=== PATIENT | male | born 1960 | race Caucasian/White ===

== ENCOUNTER 2025-02-04 16:13 | Inpatient (IN) | payer MEDICARE, SELFPAY ==
[2025-02-04] VITALS (47 sets, daily range): BP systolic 94–152; BP diastolic 54–77; PULSE 77–115; RESP 12–36; TEMP 36.4–37.1; O2SAT 85–100; BMI 27.2
--- NOTE | 2025-02-04 16:23 | DI.RAD.S_ITS ---
PROCEDURE: XR CHEST 1V INDICATIONS: Chest Pain TECHNIQUE: One view of the chest was acquired. COMPARISON: None. FINDINGS: Surgical changes and devices: None. Lungs and pleura: An incomplete inspiratory result is noted, causing a crowded appearance to the lung markings. No focal infiltrates are seen. No pneumothorax or significant pleural effusions are seen. Mediastinum: Mediastinal contours appear normal. Heart size is normal. Bones and chest wall: No suspicious bony lesions. Age-appropriate bony degenerative changes are seen. Overlying soft tissues appear unremarkable. IMPRESSION: Low lung volumes, without an acute abnormality seen by plain film. Dictated by: Logan Russo M.D. on 02/04/2025 at 15:40 Approved by: Logan Russo M.D. on 02/04/2025 at 15:40
--- NOTE | 2025-02-04 16:29 | EKG_ITS ---
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
[2025-02-04 16:46] LABS: INR 1.0 (0.9-1.3); Prothrombin Time 11.7 SECONDS (9.4-12.5)
[2025-02-04 16:49] LABS: PTT Partial Thromboplastin Tim 27 SECONDS (25.1-36.5)
[2025-02-04 16:50] LABS: Alanine Aminotransferase 29 IU/L (<50); Albumin 3.2 g/dL (3.5-5.0); Albumin Globulin Ratio 1.5 (1.0-2.8); Alkaline Phosphatase 76 U/L (38-126); Blood Urea Nitrogen 45 mg/dL (9-20); Calcium 8.2 mg/dL (8.4-10.2); Carbon Dioxide 26 mmol/L (22-32); Chloride 106 mmol/L (98-107); Creatine Kinase 34 U/L (55-170); Estimated Glomerular Filt Rate > 60 mL/min (>60); Globulin 2.2 g/dL (1.7-4.1); Glucose 149 mg/dL (70-99); HEMOLYSIS < 15 (0-50); Lipase 65 U/L (23-300); Magnesium 1.8 mg/dL (1.6-2.3); Potassium 5.0 mmol/L (3.4-5.1); Sodium 138 mmol/L (137-145); Total Protein 5.4 g/dL (6.3-8.2)
[2025-02-04 16:54] LABS: Add Manual Diff / Slide Review NO; Hematocrit 35.3 % (41-53); Hemoglobin 12.1 g/dL (13.5-17.5); Lymphocytes Absolute Auto 2200 /uL (1100-4500); Mean Corpuscular HGB Conc 34.5 % (30-36); Mean Corpuscular Hemoglobin 32.3 PG (26-34); Mean Corpuscular Volume 93.7 fL (80-100); Platelet Count 341 X10^3/uL (150-400)
[2025-02-04 17:01] LABS: NT-proBNP (BNP-Adult 18+) 29 pg/mL (<125); Troponin I < 0.012 ng/mL (0.01-0.034)
[2025-02-04] MEDS: SODIUM CHLORIDE 0.9% 1,000 ML 1000 ML IV (17:55)
--- NOTE | 2025-02-04 18:01 | PC.NURSE ---
Pt began feeling dizzy yesterday. He's been having diarrhea and vomiting off and on for a week and reported having red stuff in his stool. He states that he has been having ABD pain and feeling foggy. his right pupil is sluggish and he states that has been happening for a year due to vessel issues. he denies diabetes.
--- NOTE | 2025-02-04 18:08 | ED.SYNCOPE ---
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 Other than what is stated 14 point review of system is negative. Related Data Allergies Allergy/AdvReac Type Severity Reaction Status Date / Time No Known Drug Allergies Allergy Verified 02/04/25 16:26 Review of Systems Review of Systems ROS Unobtainable: All systems reviewed & are unremarkable except as noted in HPI and below Patient History Social History Smoking Status: Current every day smoker Smoking Status: Current every day smoker Exam Narrative Exam Narrative: GENERAL: [64] year old patient appears stated age. Well-developed patient, in mild distress. HEAD: Atraumatic. Normocephalic. EYES: Pupils equal round and reactive. Extraocular motions intact. No scleral icterus. No injection or drainage. ENT: Nose without bleeding, purulent drainage. Throat without erythema, tonsillar hypertrophy or exudate. Airway patent. NECK: Trachea midline. Non tender CARDIOVASCULAR: Regular rate and rhythm without murmurs, gallops, or rubs. RESPIRATORY: Clear to auscultation. Breath sounds equal bilaterally. No wheezes, rales, or rhonchi. GASTROINTESTINAL: Abdomen soft, non-tender, nondistended. EXTREMITIES: No edema or joint tenderness. Rectum: No hemorrhoids or fissure seen, guiac positive BACK: Nontender without deformity or crepitance. No flank tenderness. NEURO: AOx3. SKIN: No rash or erythema of visible areas Initial Vital Signs Initial Vital Signs: Vital Signs Pulse Rate 104 H 02/04/25 16:17 Pulse Oximetry 100 02/04/25 16:17 Course Orders Ordered: ED Orders 02/04/25 16:23 XR chest 1V Stat EKG-12 Lead Stat 02/04/25 16:25 Complete Blood Count AUTO DIFF Stat Comprehensive Metabolic Panel Stat Lipase Stat Magnesium Stat NT-proBNP (BNP-Adult 18+) Stat PTT Partial Thromboplastin Charan Stat Prothrombin Time INR Stat Troponin & CK Cardiac Panel Stat 02/04/25 17:56 Covid-19 + FLU A/B + RSV - PCR Stat 02/04/25 18:08 EKG-12 Lead Stat 02/04/25 18:09 CT angio Abd/Pel GI Bleed Stat 02/04/25 18:19 Type and Screen Stat Ondansetron HCl (Ondansetron 4 Mg/2 Ml Inj) 4 mg IV NOW PRN PRN Reason: Nausea And Vomiting Ondansetron HCl (Ondansetron 4 Mg Odt) 4 mg PO NOW PRN PRN Reason: Nausea And Vomiting Ondansetron HCl (Ondansetron 4 Mg/2 Ml Inj) 4 mg IV NOW PRN PRN Reason: Nausea And Vomiting Ondansetron HCl (Ondansetron 4 Mg Odt) 4 mg PO NOW PRN PRN Reason: Nausea And Vomiting Discontinued Medications Sodium Chloride (Normal Saline 0.9%) 1,000 mls @ 1,000 mls/hr IV BOLUS ONE Stop: 02/04/25 18:53 Last Infusion: 02/04/25 18:54 Dose: Infused Documented By: Admin: 02/04/25 17:55 Dose: 1,000 mls/hr Documented By: ALPHONSO Lactated Ringer's (Lactated Ringers) 1,000 mls @ 1,000 mls/hr IV BOLUS ONE Stop: 02/04/25 19:08 Last Admin: 02/04/25 19:00 Dose: 1,000 mls/hr Documented By: ALPHONSO Pantoprazole Sodium (Pantoprazole 40 Mg Vial) 80 mg IV NOW ONE Stop: 02/04/25 18:10 Last Admin: 02/04/25 18:48 Dose: 80 mg Documented By: ALPHONSO Vital Signs Vital signs: Vital Signs - 8 hr 02/04/25 16:17 02/04/25 16:23 02/04/25 16:23 Temperature Pulse Rate 104 H 103 H Respiratory Rate 21 Blood Pressure 125/72 Pulse Oximetry 100 100 Oxygen Delivery Method 02/04/25 16:24 02/04/25 16:30 02/04/25 16:30 Temperature 97.6 F Pulse Rate 105 H 103 H Respiratory Rate 18 21 Blood Pressure 125/72 118/66 Pulse Oximetry 100 100 Oxygen Delivery Method Room Air 02/04/25 17:00 02/04/25 17:00 02/04/25 17:30 Temperature Pulse Rate 103 H Respiratory Rate 12 Blood Pressure 96/54 L 102/57 L Pulse Oximetry 98 Oxygen Delivery Method 02/04/25 17:30 02/04/25 17:50 02/04/25 17:50 Temperature Pulse Rate 96 H 108 H Respiratory Rate 18 19 Blood Pressure 94/64 Pulse Oximetry 100 98 Oxygen Delivery Method 02/04/25 18:00 02/04/25 18:01 02/04/25 18:01 Temperature Pulse Rate 110 H 107 H Respiratory Rate 20 24 Blood Pressure 127/69 Pulse Oximetry 97 97 Oxygen Delivery Method 02/04/25 18:34 02/04/25 18:37 02/04/25 18:37 Temperature Pulse Rate 99 H 94 H Respiratory Rate 22 22 Blood Pressure 129/73 Pulse Oximetry 100 96 Oxygen Delivery Method 02/04/25 18:45 02/04/25 18:45 02/04/25 19:00 Temperature Pulse Rate 95 H Respiratory Rate 20 Blood Pressure 133/70 109/68 Pulse Oximetry 99 Oxygen Delivery Method 02/04/25 19:00 Temperature Pulse Rate 99 H Respiratory Rate 21 Blood Pressure Pulse Oximetry 99 Oxygen Delivery Method MDM - Syncope Lab Data 02/04/25 16:25 02/04/25 16:25 Labs: Lab Results 02/04/25 02/04/25 02/04/25 Range/Units 16:25 17:56 18:19 WBC 10.7 (4.5-11.0) X10^3/uL RBC 3.76 L (4.5-5.9) X10^6/uL Hgb 12.1 L (13.5-17.5) g/dL Hct 35.3 L (41-53) % MCV 93.7 (80-100) fL MCH 32.3 (26-34) PG MCHC 34.5 (30-36) % RDW 13.0 (11.6-14.8) % Plt Count 341 (150-400) X10^3/uL Neut % (Auto) 71.8 (50-75) % Lymph % (Auto) 20.8 L (25-40) % [place] % (Auto) 6.3 (3-14) % Eos % (Auto) 0.7 L (2-4) % Baso % (Auto) 0.4 (0-2) % Neut # (Auto) 7700 H (5868-8861) /uL Lymph # (Auto) 2200 (4047-5735) /uL [place] # (Auto) 700 (0-900) /uL Eos # (Auto) 100 (0-450) /uL Baso # (Auto) 0 (0-100) /uL PT 11.7 (9.4-12.5) SECONDS INR 1.0 (0.9-1.3) APTT 27 (25.1-36.5) SECONDS Sodium 138 (137-145) mmol/L Potassium 5.0 (3.4-5.1) mmol/L Chloride 106 (98-107) mmol/L Carbon Dioxide 26 (22-32) mmol/L BUN 45 H (9-20) mg/dL Creatinine 0.85 (0.66-1.25) mg/dL Estimated GFR > 60 (>60) mL/min BUN/Creatinine Ratio 52.9 H (6-22) Glucose 149 H (70-99) mg/dL Calcium 8.2 L (8.4-10.2) mg/dL Magnesium 1.8 (1.6-2.3) mg/dL Total Bilirubin 0.4 (0.2-1.3) mg/dL AST 31 (17-59) IU/L ALT 29 (<50) IU/L Alkaline Phosphatase 76 (38-126) U/L Total Creatine Kinase 34 L (55-170) U/L Troponin I < 0.012 (0.01-0.034) ng/mL NT-Pro-B Natriuret Pep 29 (<125) pg/mL Total Protein 5.4 L (6.3-8.2) g/dL Albumin 3.2 L (3.5-5.0) g/dL Globulin 2.2 (1.7-4.1) g/dL Albumin/Globulin Ratio 1.5 (1.0-2.8) Lipase 65 (23-300) U/L SARS-CoV-2 (PCR) Negative (Negative) Influenza A (RT-PCR) Flu a negative (NEGATIVE) Influenza B (RT-PCR) Flu b negative (NEGATIVE) RSV (PCR) Negative (Negative) Blood Type O Positive Antibody Screen Negative Point of Care Testing Stool Occult Blood Positive Imaging Data Chest x-ray: Radiologist's Impression: [address] [address] XRay Report Signed Patient: Jhon Matos MR#: [id number] : 1960 Acct:[id number] Age/Sex: 64 / M Date of Service: 02/04/25 Loc: ED Accession Number: [id number] Procedure: XR chest 1V Ordering Provider: Júnior Newman MD PROCEDURE: XR CHEST 1V INDICATIONS: Chest Pain TECHNIQUE: One view of the chest was acquired. COMPARISON: None. FINDINGS: Surgical changes and devices: None. Lungs and pleura: An incomplete inspiratory result is noted, causing a crowded appearance to the lung markings. No focal infiltrates are seen. No pneumothorax or significant pleural effusions are seen. Mediastinum: Mediastinal contours appear normal. Heart size is normal. Bones and chest wall: No suspicious bony lesions. Age-appropriate bony degenerative changes are seen. Overlying soft tissues appear unremarkable. IMPRESSION: Low lung volumes, without an acute abnormality seen by plain film. CT scan - abdomen/pelvis: Radiologist's Impression: [address] [address] [address] Scan Report Signed Patient: Jhon Matos MR#: [id number] : 1960 Acct:[id number] Age/Sex: 64 / M Date of Service: 02/04/25 Loc: ED Accession Number: [id number] Procedure: CT angio Abd/Pel GI Bleed Ordering Provider: Lavon Avila D.O. PROCEDURE: CT ANGIO ABD/PEL GI BLEED INDICATIONS: GI BLEED TECHNIQUE: After the administration of intravenous contrast, 2.5 mm thick sections acquired from the diaphragm to the symphysis. 10 mm maximum-intensity projection (MIP) reformats were then acquired. For radiation dose reduction, the following was used: automated exposure control. COMPARISON: None. FINDINGS: Image Quality: Diagnostic. Abdominal aorta: No aortic aneurysm or evidence of acute aortic syndrome. Mesenteric arteries: Patent without hemodynamically significant stenosis. Renal arteries: Patent without hemodynamically significant stenosis. OTHER: Lower Chest: No significant findings. Liver: No solid mass. A few small cysts. Gallbladder: No radiopaque gallstones or wall thickening. Biliary ducts: No biliary dilation. Pancreas: No ductal dilation. Spleen: Size is within normal limits. Adrenal Glands: No adrenal nodules. Kidneys and Ureters: No hydronephrosis. Small nonobstructing kidney stones bilaterally. No solid mass. No complex renal cystic lesion which requires follow up. Stomach and Bowel: A few colonic diverticuli. No diverticulitis. Normal appendix. No small bowel obstruction. There is subtle stranding near the gastric antrum, (). Peritoneum: No abnormal intraperitoneal fluid. No free air. Ventral Wall: No hernia. Abdominal Nodes: No retroperitoneal or mesenteric adenopathy by size criteria. Vessels: Aorta and inferior vena cava are normal in size. PELVIS: Pelvic Organs: Unremarkable. Bladder: Unremarkable. Pelvic Nodes: No enlarged lymph nodes. Miscellaneous: No inguinal hernias are seen. Bones: No aggressive osseous abnormality. Multilevel DDD. IMPRESSION: 1. No active extravasation. 2. Suspected minimal inflammatory change near the gastric antrum/proximal duodenum. 3. Small nonobstructing kidney stones. No hydronephrosis. ECG Data Interpretation: Sinus Tach HR 106 IL 140 QRS [address]-t wave change NO previous EKG to compare against MDM Narrative Medical decision making narrative: Vital signs, nurse triage note, medication list, previous ER visits, and all imaging studies reviewed. CTA abdomen and pelvis showed no active extravasation, suspected minimal inflammatory change near the gastric antrum and proximal duodenum. Small nonobstructing kidney stone. No hydronephrosis. He has 2 lines IV. Protonix IV given along with 2 L of of fluids given both NSR and LR. Typed and screened. Case discussed with Dr. Clyde Wallace who will be the consult on the case and to repeat lab work for the morning and and to be scoped in the morning and to admit to the hospitalist service. Differential diagnosis diverticular bleed, PUD, hemorrhoids. Case d/w hospitalist who has graciously accepted the patient for inpatient admission. NPO after midnight for scope in the morning and labs to be repeated with a.m. lab draw. Discharge Plan Departure Patient Disposition: Admitted As Inpatient Clinical Impression: GI (gastrointestinal bleed) Qualifiers: GI bleed type/associated pathology: gastroduodenitis Qualified Code(s): K29.91 - Gastroduodenitis, unspecified, with bleeding Admit Date/Time: 02/04/25 19:51 Admit Provider: Jase Kelsey
[2025-02-04 18:46] LABS: Influenza A - CEPHEID Flu A NEGATIVE (NEGATIVE); Influenza B - CEPHEID Flu B NEGATIVE (NEGATIVE)
[2025-02-04] MEDS: PANTOPRAZOLE 40 MG VIAL 80 MG IV (18:48)
[2025-02-04 18:50] LABS: COVID-19 CEPHEID 4-PLEX PCR Negative (Negative)
[2025-02-04] MEDS: LACTATED RINGERS 1,000 ML 1000 ML IV ×2 (19:00→19:49)
--- NOTE | 2025-02-04 20:27 | PC.NURSE ---
pt had approx 300cc of black tarry stool. also has bottom covered in black stool as well, approx 100cc. Provider observed in RR
[2025-02-04 20:57] LABS: Add Manual Diff / Slide Review NO; Hematocrit 23.6 % (41-53); Hemoglobin 8.2 g/dL (13.5-17.5); Lymphocytes Absolute Auto 2100 /uL (1100-4500); Mean Corpuscular HGB Conc 35.0 % (30-36); Mean Corpuscular Hemoglobin 32.8 PG (26-34); Mean Corpuscular Volume 93.9 fL (80-100); Platelet Count 265 X10^3/uL (150-400)
--- NOTE | 2025-02-04 21:14 | PC.NURSE ---
pt sat up on stretcher became cool, clammy and diaphoretic and unresponsive, was incontinent of large coffee ground loose stool. pt then became responsive but was disoriented and thrashing about on the bed
--- NOTE | 2025-02-04 21:30 | PC.NURSE ---
Pt was stable and stating he wanted a sandwhich. Provider was asked if he could have a sandwhich. Pt sat up to eat at approx 2100. Moments later the nurse heard coughing sounds coming from the room and responded to find the patient not responding but with a pulse and vitals WNL on the monitor. The patient was lowered flat and provider called to bedside. Mutiple RNs and MD responded. Provider ordered 2 units stat. Two units obtained and administered emergently. patient gave verbal consent at bedside. signed consent [id number].
[2025-02-04 22:02] LABS: Hematocrit 23.9 % (41-53); Hemoglobin 8.2 g/dL (13.5-17.5)
--- NOTE | 2025-02-04 22:36 | PC.NURSE ---
called and updated
[2025-02-05] VITALS (92 sets, daily range): BP systolic 72–160; BP diastolic 41–74; PULSE 93–124; RESP 0–38; TEMP 36.4–37.1; O2SAT 75–100
--- NOTE | 2025-02-05 | DI.RAD.S_ITS ---
PROCEDURE: XR CHEST 1V INDICATIONS: ET PLACEMENT TECHNIQUE: One view of the chest was acquired. COMPARISON: [facility], CR, XR CHEST 1V, 02/04/2025, 16:23. FINDINGS: Surgical changes and devices: Endotracheal tube tip projects 4.3 centimeters above the alvarez. Enteric tube courses below the diaphragm with distal tip not visualized. Lungs and pleura: Left lung base patchy opacities. No pleural effusions or pneumothorax. Mediastinum: Mediastinal contours appear normal. Heart size is normal. Bones and chest wall: No suspicious bony lesions. Overlying soft tissues appear unremarkable. IMPRESSION: Endotracheal tube projects 4.3 centimeters above the alvarez. Left base patchy opacities. Approved by: Katiuska Sandra M.D.,Ph.D. on 02/05/2025 at 20:16
--- NOTE | 2025-02-05 | PATH_ITS ---
[facility] Accession Number: [id number] No. of containers..01 Tissue . 01 Material submitted: . duodenum - DUODENAL BULB ULCER . 01 Diagnosis: DUODENAL BULB, BIOPSY: Duodenal mucosa with erosion, consistent with peptic duodenitis. Negative for features of sprue, dysplasia, or malignancy. MRV 02/12/2025 1512 Local . 01 Electronically signed: . José Manuel Sheffield MD, PhD, Pathologist NPI- [id number] . 01 Gross description: . DUODENAL BULB ULCER: Received in formalin are 2 fragment(s) of harper, soft tissue measuring 0.1 x 0.1 x 0.1 cm in aggregate submitted entirely in 1 cassette(s) /JH 02/10/2025 2318 Local . 01 Pathologist provided ICD-10: K29.80 . 01 CPT . 799184 Specimen Comment: A courtesy copy of this report has been sent to [facility] Performed at: [address] [address], [place], [place] [id number] MD Jesus Ortez MD Phone: [phone]
[2025-02-05] MEDS: SODIUM CHLORIDE 0.9% IV (00:39)
[2025-02-05] MEDS: PANTOPRAZOLE IV (00:39)
[2025-02-05] MEDS: SODIUM CHLORIDE 0.9% 1,000 ML 125 ML IV ×2 (00:41→08:42)
[2025-02-05 01:32] LABS: Add Manual Diff / Slide Review NO; Hematocrit 26.1 % (41-53); Hemoglobin 9.1 g/dL (13.5-17.5); Lymphocytes Absolute Auto 3300 /uL (1100-4500); Mean Corpuscular HGB Conc 34.8 % (30-36); Mean Corpuscular Hemoglobin 31.8 PG (26-34); Mean Corpuscular Volume 91.4 fL (80-100); Platelet Count 218 X10^3/uL (150-400)
[2025-02-05 01:56] LABS: MRSA (Nasal) PCR NOT DETECTED (Not Detect)
--- NOTE | 2025-02-05 04:28 | P.HP_ITS ---
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 He was also told 2 months ago in [place] [facility] that the left-sided carotid artery had numerous plaques and he needed to follow up in have surgery but he never did. Initial laboratory showed WBC 9.5, hemoglobin 12.1, hematocrit 35.3, platelets 265, INR 1, glucose 149, calcium 8.2, magnesium 1.8, troponin 0.0 12, potassium 5, creatinine 0.85, LFT normal, BNP 29, lipase 65, stool occult blood positive. Chest x-ray unremarkable. CT of the abdomen shows minimal inflammatory change near the gastric antrum/proximal duodenum. Small nonobstructive kidney stones without hydronephrosis. Surgery was consulted and recommended admission for GI bleed and colonoscopy/EGD in the morning. He was given Protonix 80 mg IV and several fluid boluses. [facility] Social History household members: spouse Smoking Status: Current every day smoker alcohol intake: current Meds Home Medications and Allergies Allergies Allergy/AdvReac Type Severity Reaction Status Date / Time No Known Drug Allergies Allergy Verified 02/04/25 16:26 Review of Systems Review of Systems Narrative: All systems reviewed & are unremarkable except as noted in HPI and below Exam Vital Signs (past 8 hours): - 02/04/25 20:30 02/04/25 20:31 02/04/25 20:31 Temperature Pulse Rate 107 H 100 H Respiratory Rate 28 H 22 Blood Pressure 143/66 H Pulse Oximetry 100 100 Oxygen Delivery Method 02/04/25 20:45 02/04/25 20:45 02/04/25 21:00 Temperature Pulse Rate 97 H 77 Respiratory Rate 16 25 H Blood Pressure 110/55 L Pulse Oximetry 98 100 Oxygen Delivery Method 02/04/25 21:04 02/04/25 21:04 02/04/25 21:06 Temperature Pulse Rate 114 H Respiratory Rate 29 H Blood Pressure 141/71 H 133/64 Pulse Oximetry 100 Oxygen Delivery Method 02/04/25 21:06 02/04/25 21:11 02/04/25 21:11 Temperature Pulse Rate 105 H 110 H Respiratory Rate 36 H 33 H Blood Pressure 111/56 L Pulse Oximetry 97 88 L Oxygen Delivery Method 02/04/25 21:15 02/04/25 21:15 02/04/25 21:19 Temperature 98.1 F Pulse Rate 115 H 103 H Respiratory Rate 24 20 Blood Pressure 113/62 121/64 Pulse Oximetry 100 Oxygen Delivery Method 02/04/25 21:20 02/04/25 21:20 02/04/25 21:36 Temperature 98.8 F Pulse Rate 103 H 104 H Respiratory Rate 26 H 14 Blood Pressure 121/64 117/63 Pulse Oximetry 100 Oxygen Delivery Method 02/04/25 21:37 02/04/25 23:30 02/04/25 23:32 Temperature 98.4 F Pulse Rate 105 H 102 H Respiratory Rate 14 20 Blood Pressure 123/65 131/61 Pulse Oximetry Oxygen Delivery Method Room Air 02/04/25 23:32 Temperature 98.4 F Pulse Rate 102 H Respiratory Rate 20 Blood Pressure 131/61 Pulse Oximetry Oxygen Delivery Method Oxygen Delivery Method Room Air Narrative Exam Narrative: Patient appears stated age. Well-developed patient, in mild distress. HEAD: Atraumatic. Normocephalic. EYES: Pupils equal round and reactive. Extraocular motions intact. No scleral icterus. No injection or drainage. ENT: Nose without bleeding, purulent drainage. Throat without erythema, tonsillar hypertrophy or exudate. Airway patent. NECK: Trachea midline. Non tender CARDIOVASCULAR: Regular rate and rhythm without murmurs, gallops, or rubs. RESPIRATORY: Clear to auscultation. Breath sounds equal bilaterally. No wheezes, rales, or rhonchi. GASTROINTESTINAL: Abdomen soft, non-tender, nondistended. EXTREMITIES: No edema or joint tenderness. Rectum: No hemorrhoids or fissure seen, guiac positive BACK: Nontender without deformity or crepitance. No flank tenderness. NEURO: AOx3. SKIN: No rash or erythema of visible areas Objective Labs 02/05/25 01:24 02/04/25 16:25 Labs: Laboratory Results - last 24 hr 02/04/25 02/04/25 02/04/25 16:25 17:56 18:19 WBC 10.7 RBC 3.76 L Hgb 12.1 L Hct 35.3 L MCV 93.7 MCH 32.3 MCHC 34.5 RDW 13.0 Plt Count 341 Neut % (Auto) 71.8 Lymph % (Auto) 20.8 L [place] % (Auto) 6.3 Eos % (Auto) 0.7 L Baso % (Auto) 0.4 Neut # (Auto) 7700 H Lymph # (Auto) 2200 [place] # (Auto) 700 Eos # (Auto) 100 Baso # (Auto) 0 PT 11.7 INR 1.0 APTT 27 Sodium 138 Potassium 5.0 Chloride 106 Carbon Dioxide 26 BUN 45 H Creatinine 0.85 Estimated GFR > 60 BUN/Creatinine Ratio 52.9 H Glucose 149 H POC Whole Bld Glucose Calcium 8.2 L Magnesium 1.8 Total Bilirubin 0.4 AST 31 ALT 29 Alkaline Phosphatase 76 Total Creatine Kinase 34 L Troponin I < 0.012 NT-Pro-B Natriuret Pep 29 Total Protein 5.4 L Albumin 3.2 L Globulin 2.2 Albumin/Globulin Ratio 1.5 Lipase 65 Nasal Screen MRSA (PCR) SARS-CoV-2 (PCR) Negative Influenza A (RT-PCR) Flu a negative Influenza B (RT-PCR) Flu b negative RSV (PCR) Negative Blood Type O Positive Antibody Screen Negative Crossmatch See Detail 02/04/25 02/04/25 02/04/25 20:50 21:05 23:30 WBC 9.5 RBC 2.51 L Hgb 8.2 L 8.2 L Hct 23.6 L 23.9 L MCV 93.9 MCH 32.8 MCHC 35.0 RDW 13.4 Plt Count 265 Neut % (Auto) 71.0 Lymph % (Auto) 21.8 L [place] % (Auto) 6.4 Eos % (Auto) 0.2 L Baso % (Auto) 0.6 Neut # (Auto) 6800 Lymph # (Auto) 2100 [place] # (Auto) 600 Eos # (Auto) 0 Baso # (Auto) 100 PT INR APTT Sodium Potassium Chloride Carbon Dioxide BUN Creatinine Estimated GFR BUN/Creatinine Ratio Glucose POC Whole Bld Glucose Calcium Magnesium Total Bilirubin AST ALT Alkaline Phosphatase Total Creatine Kinase Troponin I NT-Pro-B Natriuret Pep Total Protein Albumin Globulin Albumin/Globulin Ratio Lipase Nasal Screen MRSA (PCR) Not detected SARS-CoV-2 (PCR) Influenza A (RT-PCR) Influenza B (RT-PCR) RSV (PCR) Blood Type Antibody Screen Crossmatch 02/05/25 02/05/25 01:24 01:34 WBC 11.7 H RBC 2.85 L Hgb 9.1 L Hct 26.1 L MCV 91.4 MCH 31.8 MCHC 34.8 RDW 14.5 Plt Count 218 Neut % (Auto) 64.9 Lymph % (Auto) 28.3 [place] % (Auto) 5.9 Eos % (Auto) 0.3 L Baso % (Auto) 0.6 Neut # (Auto) 7600 H Lymph # (Auto) 3300 [place] # (Auto) 700 Eos # (Auto) 0 Baso # (Auto) 100 PT INR APTT Sodium Potassium Chloride Carbon Dioxide BUN Creatinine Estimated GFR BUN/Creatinine Ratio Glucose POC Whole Bld Glucose 139 H Calcium Magnesium Total Bilirubin AST ALT Alkaline Phosphatase Total Creatine Kinase Troponin I NT-Pro-B Natriuret Pep Total Protein Albumin Globulin Albumin/Globulin Ratio Lipase Nasal Screen MRSA (PCR) SARS-CoV-2 (PCR) Influenza A (RT-PCR) Influenza B (RT-PCR) RSV (PCR) Blood Type Antibody Screen Crossmatch Assessment & Plan Assessment & Plan narrative: Acute blood loss anemia requiring resuscitation with multiple blood transfusions. The patient required to be upgraded to ICU due to severe hypotension after 2 units of PRBC. His Hb drop from 12.1 to 8.2. Acute GI bleeding. -Monitor H and H every 4-6 hours; will transfuse depending on dropping hemoglobin and hematocrit and hemodynamic status. -start Protonix 40 mg IV twice a day. -Keep patient NPO -Monitor hemodynamics - Surgery consulted. Endoscopic evaluation of upper GI tract, as well as possibly colonoscopy would be necessary in this patient with high risk of gastrointestinal bleed. -Patient to get off any antiplatelet agent like aspirin, Plavix or NSAIDs. I performed this consultation using real-time telehealth tools, including a two- way live audio and video communication between my location at [place] and the patient's location. As the provider for this telehealth service, I attest that I introduced myself to the patient, provided my credentials, disclosed my location at [place], and determined that, based on a review of the patients chart and/or a discussion with members of the patient's treatment team, telemedicine via a real-time, two- way, interactive audio and video platform is an appropriate and effective means of providing this service. The patient and I mutually agree that this visit is appropriate for telemedicine as well. I personally reviewed the pertinent medical records, including, but not limited to vital signs, Is/Os, labs, imaging, microbiology, meds list and other providers? notes. I discussed the patient?s case with the RN and attending physician. Disclaimer Note: To increase efficiency, your provider may have prepared this document using voice recognition technology. In that case, if a word or phrase is confusing, or does not make sense, this is likely due to a recognition error within the program which was not discovered during the provider?s review. If you believe an error has occurred, please notify your provider?s office at your earliest convenience, so we can correct any mistakes. Time-Based Coding :: [TOTAL MINUTES] spent with patient and on the chart (including review of chart, obtaining history, exam, reviewing outside data, placing orders, documenting exam and treatment plan, and counseling patient) on [DATE]. Quality VTE Deep Vein Thrombosis/Pulmonary Embolism Present on Admission: No MIPS - Admit I confirm the patient?s Advance Care Plan is present, Code status is documented, Surrogate decision maker is in patient?s record [If Yes, STOP here]: Yes MIPS - Meds 'Current medications' to include all prescriptions, [id number] products, herbals, cannabis/cannabidiol products, and vitamin/mineral/dietary (nutritional) supplements. I have utilized all available resources to obtain, update, or review the patient?s current medications. [If Yes, STOP here]: Yes
[2025-02-05] MEDS: MORPHINE 4 MG/ML INJ 3 MG IV ×2 (07:01→14:43)
[2025-02-05 09:24] LABS: Alanine Aminotransferase 17 IU/L (<50); Albumin 2.1 g/dL (3.5-5.0); Albumin Globulin Ratio 1.2 (1.0-2.8); Alkaline Phosphatase 44 U/L (38-126); Blood Urea Nitrogen 40 mg/dL (9-20); Calcium 7.5 mg/dL (8.4-10.2); Carbon Dioxide 20 mmol/L (22-32); Chloride 115 mmol/L (98-107); Estimated Glomerular Filt Rate > 60 mL/min (>60); Globulin 1.8 g/dL (1.7-4.1); Glucose 97 mg/dL (70-99); HEMOLYSIS 22 (0-50); Magnesium 1.5 mg/dL (1.6-2.3); Potassium 4.7 mmol/L (3.4-5.1); Sodium 135 mmol/L (137-145); Total Protein 3.9 g/dL (6.3-8.2)
--- NOTE | 2025-02-05 09:30 | CM.DANOTE ---
Initial DCP Assessment Note Pt is a 64 yo male, resident of [place], with syncopal episode yesterday after having a numerous bloody bowel movements. Patient is scheduled for a scope today with general surgery. PCP: Unknown- Discuss with patient Payer: [facility] Reviewed chart, patient being seen by Dr Welch and Dr Randhawa, surgery, this morning. Patient NPO in preparation for scope. Patient is mostly independent, has residual visual deficit after CVA. Patient may be a good candidate for HH referral if provider(s) recommend and patient agreeable. No barriers identified at this time to patient's safe discharge home w/family to assist; close outpatient f/u recommended. Social work team will plan to follow clinical course closely in case any DC needs or concerns arise. 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 No History Provided By Patient Prior Living Mobile home Arrangements Household Members spouse Type of Drives own vehicle transporation used prior to admit Independent with ADL Yes 's Is patient alert and Yes oriented? Comment Prior CVA with visual deficit, needs assist with higher ADLs Comment Home Barriers to No Discharge Comment No barriers identified at this time. Scope today. Discharge Plan Home Transportation Family Arrangement Additional Comment Patient may benefit from HH referral, following closely for coordination.
[2025-02-05 09:39] LABS: Add Manual Diff / Slide Review NO; Hematocrit 21.5 % (41-53); Hemoglobin 7.5 g/dL (13.5-17.5); Lymphocytes Absolute Auto 2900 /uL (1100-4500); Mean Corpuscular HGB Conc 35.1 % (30-36); Mean Corpuscular Hemoglobin 31.7 PG (26-34); Mean Corpuscular Volume 90.4 fL (80-100); Platelet Count 210 X10^3/uL (150-400)
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
--- NOTE | 2025-02-05 10:27 | PC.NURSE ---
Addendum entered by Rachel Phillips R.N. 02/05/25 12:36: 1200 pt returned from OR A/O, VSS, OR was not able to administer PRBC, so first unit started at 1215 to infuse 2 units. Pt started on clear liquid diet, pt tolerating well. No further needs at this time, care ongoing Original Note: 1026 Pt to surgery for EGD, consent signed, 2 units PRBC to be started in surgery for H/H of 7.5/21.3 as ordered by surgeon. No further pt contact at this time
[2025-02-05] MEDS: LACTATED RINGERS 1,000 ML 42 ML IV (10:49)
--- NOTE | 2025-02-05 11:17 | PM.OP.EGD ---
Operative Date/Time/Diagnoses Date of procedure: 02/05/25 Time of procedure: 11:00 Pre-op diagnosis: GI bleeding with acute blood loss anemia black stools rule out upper GI bleed Post-op diagnosis: other (Irregular GE junction hiatal hernia with mild gastritis duodenal bulb ulcer nonbleeding) Procedure & Clinicians Study performed: EGD with MAC with biopsy of duodenal ulcer Same procedure(s) as scheduled: Yes Indications: Upper GI bleeding with acute blood loss anemia Surgeon: Abdulaziz Payne Anesthesia Type: MAC +/- (IV with MAC) Procedure Notes Procedure in detail: Patient was seen in consultation preoperatively in the ICU. Patient had lost approximately 5 g of hemoglobin was having black and red stools. Patient had an episode of syncope prior to arrival. Discussed with patient need for EGD with MAC procedure risks and complications were fully explained including risk for cardiopulmonary depression infection bleeding and bowel injury. Patient understood and consented. Patient had been NPO since admission. Was taken to endoscopy suite and given continuous pulse oximetry nasal cannula oxygen and EKG monitoring. The patient was given IV sedation as per anesthesia. Patient then had a time-out was performed patient procedure and surgeon all in the room were in agreement. Patient had an oral bite block was placed protect remaining dentition. Video EGD scope was lubricated with KY jelly and advanced into the oropharyngeal cavity. Vocal cords were visualized with good motion. Scope was advanced through the esophagus with normal anatomical landmarks. Irregular GE junction was noted with a small hiatal hernia. Old blood was noted in the gastric lumen this was irrigated off to avoid any hidden pathology. No gross bleeding was noted. Pylorus identified easily cannulated advanced limits of the scope. The scope was slowly withdrawn a large clot was noted overlying the 1st portion of the duodenum and duodenal bulb this was removed and an underlying ulcer was noted no exposed blood vessels were noted no active bleeding was noted. Biopsy was taken of the ulcer bed to rule out any pathology. No bleeding was noted with desufflation. The scope was further withdrawn through the pylorus with good motion no signs of channel ulcers or scarring. The scope was turned back the gastric lumen all materials were washed off the adames and all portals were aspirated voiding hidden pathology. The scope was retroflexed upon itself and the hiatal hernia was noted. All materials were aspirated out of the stomach scope was returned back to the GE junction no gross findings were noted other than irregular GE junction. Scope was slowly withdrawn back through the esophagus with normal anatomical landmarks. At the oropharyngeal cavity this was suctioned clear vocal cords noted again to have good motion. The scope was removed as was bite block all dentition was noted to be intact. The patient tolerated the procedure well without incident or complication was returned to recovery room in satisfactory condition. Postoperatively patient will be admitted back to ICU and monitored we will transfuse packed RBCs with a H&H is q.[address] on H2 blockers antacids and Carafate. Patient will be followed closely all questions were answered to patient's satisfaction. Findings: duodenal ulcer, gastritis and hiatal hernia Specimen(s): other Complications: none Impression: Duodenal bulb ulcer Post-procedure Recommendations: EGD in 1 year, Reflux diet and Will call with biopsy results Disposition: ICU
[2025-02-05] MEDS: MAGNESIUM SULFATE 2 GM/50 ML PIGGYBACK IV (12:50)
[2025-02-05] MEDS: MAG HYDROX/ALUM/SIMETH 30 ML UDC PO (13:03)
[2025-02-05] MEDS: SUCRALFATE 1 GM TABLET PO (13:03)
[2025-02-05] MEDS: PANTOPRAZOLE 40 MG VIAL IV (13:04)
--- NOTE | 2025-02-05 13:48 | CM.DANOTE ---
Initial DCP Assessment Note Pt is a 64 yo male, currently living in his RV with SO, admitted for work up of GI Bleed, upper scope scheduled today with general surgeon. PCP: None Payer: CAROLE Reviewed chart, met w/patient who reports he has been traveling w/SO in his RV, staying at [facility] sites. Patient and SO were headed to [facility]. 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 Patient admits to of polysubstance abuse, denies current illicit drug use or heavy ETOH. 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 Upon discharge, patient plans to take an uber vs taxi back to his RV. SO does not drive the RV and the only other form of transport they have is patient's Carlos, motorcycle. No barriers identified at this time to patient's safe discharge back to RV. Social work team will plan to follow clinical course closely in case any DC needs or concerns arise. RIRI Madera Discharge Planning/Care Management CM Discharge Assessment Start: 02/04/25 23:30 Freq: Status: Active Protocol: Document 02/05/25 13:43 TAM (Rec: 02/05/25 13:47 TAM [id number]) Discharge Planning Assessment Assigned Discharge RIRI Espinoza Pesticide Chemist DPIFTIKHAR/Assigned JANINE Sorinao Designee Name Contact Information [phone] Advance Directives? No History Provided By Patient Prior Living RV Arrangements Household Members significant other Type of Drives own vehicle transporation used prior to admit Comment Carlos Independent with ADL Yes 's Is patient alert and Yes oriented? Comment Independent Comment Back to RV via taxi vs Uber Barriers to No Discharge Discharge Plan Home Transportation Taxi vs Uber Arrangement Referrals Initiated None needed Additional Comment Patient denies needs from this SW team
--- NOTE | 2025-02-05 14:53 | P.HP_ITS ---
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 Initial laboratory showed WBC 9.5, hemoglobin 12.1, hematocrit 35.3, platelets 265, INR 1, glucose 149, calcium 8.2, magnesium 1.8, troponin 0.0 12, potassium 5, creatinine 0.85, LFT normal, BNP 29, lipase 65, stool occult blood positive. Chest x-ray unremarkable. CT of the abdomen shows minimal inflammatory change near the gastric antrum/proximal duodenum. Small nonobstructive kidney stones without hydronephrosis. Surgery was consulted and recommended admission for GI bleed and colonoscopy/EGD in the morning. He was given Protonix 80 mg IV and several fluid boluses. 02/05: The patient underwent upper endoscopy today showing a nonbleeding duodenal ulcer without visible vessel, gastritis and hiatal hernia. Old blood was noted in the gastric lumen. No gross bleeding was noted. He reports his last drink was 2 days ago, single beer, states he does not drink regularly, and denies a history of alcohol withdrawal, prior endoscopy or ulcers, aspirin or NSAID use, or known underlying liver disease or cirrhosis. [facility] Social History household members: significant other Smoking Status: Current every day smoker alcohol intake: current Meds Home Medications and Allergies Home Medications ?Medication ?Instructions ?Recorded ?Confirmed ?Type No Known Home Medications 02/05/2508/01 History Allergies Allergy/AdvReac Type Severity Reaction Status Date / Time No Known Drug Allergies Allergy Verified 02/04/25 16:26 Review of Systems Review of Systems ROS: Yes All systems reviewed with the patient and are negative except as otherwise documented Exam Vital Signs (past 8 hours): - 02/05/25 07:00 02/05/25 07:00 02/05/25 07:00 Temperature Pulse Rate 108 H Respiratory Rate 25 H Blood Pressure 101/65 Pulse Oximetry 99 Oxygen Delivery Method Room Air 02/05/25 07:30 02/05/25 08:00 02/05/25 08:00 Temperature 97.6 F Pulse Rate 101 H 96 H Respiratory Rate 14 13 Blood Pressure Pulse Oximetry 99 100 Oxygen Delivery Method 02/05/25 08:00 02/05/25 08:30 02/05/25 09:00 Temperature Pulse Rate 98 H 100 H Respiratory Rate 12 11 L Blood Pressure 112/68 Pulse Oximetry 100 99 Oxygen Delivery Method 02/05/25 09:30 02/05/25 10:00 02/05/25 11:00 Temperature Pulse Rate 100 H 96 H Respiratory Rate 18 18 Blood Pressure Pulse Oximetry 100 99 Oxygen Delivery Method Room Air 02/05/25 11:15 02/05/25 11:20 02/05/25 11:41 Temperature Pulse Rate 103 H 103 H 93 H Respiratory Rate 20 22 16 Blood Pressure 119/61 115/56 L 112/65 Pulse Oximetry 96 95 Oxygen Delivery Method Room Air Room Air Room Air 02/05/25 11:57 02/05/25 11:58 02/05/25 11:58 Temperature Pulse Rate 93 H 94 H Respiratory Rate Blood Pressure 121/73 Pulse Oximetry 81 L 75 L Oxygen Delivery Method 02/05/25 12:00 02/05/25 12:00 02/05/25 12:14 Temperature 98.8 F Pulse Rate 99 H 111 H Respiratory Rate 20 Blood Pressure 123/69 123/69 Pulse Oximetry Oxygen Delivery Method 02/05/25 12:30 02/05/25 12:30 02/05/25 12:45 Temperature Pulse Rate 102 H Respiratory Rate 22 Blood Pressure 148/72 H 132/74 Pulse Oximetry 84 L Oxygen Delivery Method 02/05/25 12:45 02/05/25 13:00 02/05/25 13:00 Temperature Pulse Rate 105 H 103 H Respiratory Rate 20 18 Blood Pressure 137/73 Pulse Oximetry 83 L 98 Oxygen Delivery Method Oxygen Delivery Method Room Air Narrative Exam Narrative: GENERAL: This is a chronically ill-appearing male patient, appears uncomfortable for denying discrete pain, otherwise in no apparent distress. HEAD: Atraumatic. Normocephalic. No temporal or scalp tenderness. EYES: Pupils equal round and reactive. Extraocular motions intact. No scleral icterus. No injection or drainage. ENT: Mucous membranes pink and moist. NECK: Trachea midline. No JVD, bruits or lymphadenopathy. Supple, nontender, no meningeal signs. CARDIOVASCULAR: Regular rate and rhythm without murmurs, gallops, or rubs. RESPIRATORY: Clear to auscultation. GASTROINTESTINAL: Abdomen soft, epigastric tenderness, no guarding or rebound, nondistended. EXTREMITIES: No clubbing, cyanosis, or edema. BACK: Nontender without deformity or crepitance. No flank tenderness. NEUROLOGIC: Alert, oriented, speech fluent, full upper and lower motor strength, no focal deficits evident. DERMATOLOGIC: No rashes or skin lesions. Objective ECG Impression: EKG 02/04/2025: Sinus tachycardia at 106 beats per minute. No ischemic changes Imaging Chest x-ray 02/04/2025: : Radiologist's impression: Low lung volumes, without an acute abnormality seen by plain film. Abdomen/pelvis CTA 02/04/2025: : Radiologist's impression: 1. No active extravasation. 2. Suspected minimal inflammatory change near the gastric antrum/proximal duodenum. 3. Small nonobstructing kidney stones. No hydronephrosis. Labs 02/05/25 09:20 02/05/25 08:40 Labs: Laboratory Results - last 24 hr 02/04/25 02/04/25 02/04/25 16:25 17:56 18:19 WBC 10.7 RBC 3.76 L Hgb 12.1 L Hct 35.3 L MCV 93.7 MCH 32.3 MCHC 34.5 RDW 13.0 Plt Count 341 Neut % (Auto) 71.8 Lymph % (Auto) 20.8 L [place] % (Auto) 6.3 Eos % (Auto) 0.7 L Baso % (Auto) 0.4 Neut # (Auto) 7700 H Lymph # (Auto) 2200 [place] # (Auto) 700 Eos # (Auto) 100 Baso # (Auto) 0 PT 11.7 INR 1.0 APTT 27 Sodium 138 Potassium 5.0 Chloride 106 Carbon Dioxide 26 BUN 45 H Creatinine 0.85 Estimated GFR > 60 BUN/Creatinine Ratio 52.9 H Glucose 149 H POC Whole Bld Glucose Calcium 8.2 L Magnesium 1.8 Total Bilirubin 0.4 AST 31 ALT 29 Alkaline Phosphatase 76 Total Creatine Kinase 34 L Troponin I < 0.012 NT-Pro-B Natriuret Pep 29 Total Protein 5.4 L Albumin 3.2 L Globulin 2.2 Albumin/Globulin Ratio 1.5 Lipase 65 Nasal Screen MRSA (PCR) SARS-CoV-2 (PCR) Negative Influenza A (RT-PCR) Flu a negative Influenza B (RT-PCR) Flu b negative RSV (PCR) Negative Blood Type O Positive Antibody Screen Negative Crossmatch See Detail 02/04/25 02/04/25 02/04/25 20:50 21:05 23:30 WBC 9.5 RBC 2.51 L Hgb 8.2 L 8.2 L Hct 23.6 L 23.9 L MCV 93.9 MCH 32.8 MCHC 35.0 RDW 13.4 Plt Count 265 Neut % (Auto) 71.0 Lymph % (Auto) 21.8 L [place] % (Auto) 6.4 Eos % (Auto) 0.2 L Baso % (Auto) 0.6 Neut # (Auto) 6800 Lymph # (Auto) 2100 [place] # (Auto) 600 Eos # (Auto) 0 Baso # (Auto) 100 PT INR APTT Sodium Potassium Chloride Carbon Dioxide BUN Creatinine Estimated GFR BUN/Creatinine Ratio Glucose POC Whole Bld Glucose Calcium Magnesium Total Bilirubin AST ALT Alkaline Phosphatase Total Creatine Kinase Troponin I NT-Pro-B Natriuret Pep Total Protein Albumin Globulin Albumin/Globulin Ratio Lipase Nasal Screen MRSA (PCR) Not detected SARS-CoV-2 (PCR) Influenza A (RT-PCR) Influenza B (RT-PCR) RSV (PCR) Blood Type Antibody Screen Crossmatch 02/05/25 02/05/25 02/05/25 01:24 01:34 08:40 WBC 11.7 H RBC 2.85 L Hgb 9.1 L Hct 26.1 L MCV 91.4 MCH 31.8 MCHC 34.8 RDW 14.5 Plt Count 218 Neut % (Auto) 64.9 Lymph % (Auto) 28.3 [place] % (Auto) 5.9 Eos % (Auto) 0.3 L Baso % (Auto) 0.6 Neut # (Auto) 7600 H Lymph # (Auto) 3300 [place] # (Auto) 700 Eos # (Auto) 0 Baso # (Auto) 100 PT INR APTT Sodium 135 L Potassium 4.7 Chloride 115 H Carbon Dioxide 20 L BUN 40 H Creatinine 0.68 Estimated GFR > 60 BUN/Creatinine Ratio 58.8 H Glucose 97 POC Whole Bld Glucose 139 H Calcium 7.5 L Magnesium 1.5 L Total Bilirubin 0.6 AST 21 ALT 17 Alkaline Phosphatase 44 Total Creatine Kinase Troponin I NT-Pro-B Natriuret Pep Total Protein 3.9 L Albumin 2.1 L Globulin 1.8 Albumin/Globulin Ratio 1.2 Lipase Nasal Screen MRSA (PCR) SARS-CoV-2 (PCR) Influenza A (RT-PCR) Influenza B (RT-PCR) RSV (PCR) Blood Type Antibody Screen Crossmatch 02/05/25 09:20 WBC 11.2 H RBC 2.38 L Hgb 7.5 L Hct 21.5 L MCV 90.4 MCH 31.7 MCHC 35.1 RDW 14.4 Plt Count 210 Neut % (Auto) 66.3 Lymph % (Auto) 26.4 [place] % (Auto) 6.2 Eos % (Auto) 0.5 L Baso % (Auto) 0.6 Neut # (Auto) 7400 H Lymph # (Auto) 2900 [place] # (Auto) 700 Eos # (Auto) 100 Baso # (Auto) 100 PT INR APTT Sodium Potassium Chloride Carbon Dioxide BUN Creatinine Estimated GFR BUN/Creatinine Ratio Glucose POC Whole Bld Glucose Calcium Magnesium Total Bilirubin AST ALT Alkaline Phosphatase Total Creatine Kinase Troponin I NT-Pro-B Natriuret Pep Total Protein Albumin Globulin Albumin/Globulin Ratio Lipase Nasal Screen MRSA (PCR) SARS-CoV-2 (PCR) Influenza A (RT-PCR) Influenza B (RT-PCR) RSV (PCR) Blood Type Antibody Screen Crossmatch Assessment & Plan Assessment & Plan narrative: Acute blood loss anemia requiring resuscitation with multiple blood transfusions. The patient required to be upgraded to ICU due to severe hypotension after 2 units of PRBC, with additional 2 units PRBC ordered. Acute GI bleeding due to duodenal ulcer by EGD 02/05/2025. -Monitor serial hematocrits -continue Protonix 40 mg IV twice a day plus sucralfate 4 times daily. - Surgery consultation greatly appreciated. History of polysubstance and alcohol abuse. -reportedly currently inactive. Monitor for evidence of withdrawal. DVT prophylaxis: SCDs, avoid anticoagulants Code status: Full code. Quality VTE Deep Vein Thrombosis/Pulmonary Embolism Present on Admission: No MIPS - Admit I confirm the patient?s Advance Care Plan is present, Code status is documented, Surrogate decision maker is in patient?s record [If Yes, STOP here]: Yes [facility] - Meds 'Current medications' to include all prescriptions, [id number] products, herbals, cannabis/cannabidiol products, and vitamin/mineral/dietary (nutritional) supplements. I have utilized all available resources to obtain, update, or review the patient?s current medications. [If Yes, STOP here]: Yes [employer] Document charge(s): No Charge Codes Initial inpatient/observation care: [id number]
[2025-02-05 17:37] LABS: Platelet Count 169 X10^3/uL (150-400)
[2025-02-05 17:39] LABS: Hematocrit 20.1 % (41-53); Hemoglobin 6.9 g/dL (13.5-17.5)
[2025-02-05 17:45] LABS: INR 1.2 (0.9-1.3); Prothrombin Time 13.6 SECONDS (9.4-12.5)
[2025-02-05 17:46] LABS: Fibrinogen 139 mg/dL (238-498)
[2025-02-05 17:48] LABS: PTT Partial Thromboplastin Tim 27 SECONDS (25.1-36.5)
--- NOTE | 2025-02-05 17:57 | RT ---
Called to Rapid, at bedside pt vomitting jade blood, sweaty and cant breath. Pt suctioned for copiuos jade blood, placed on 15 lpm oximask. MD at bedside prepairing for intubation. Bag mask on and functional with 100% fio2/15lpm. Suction on and functional
--- NOTE | 2025-02-05 18:11 | PC.NURSE ---
1615 This nurse went into pt room after Dr Welch noted that pt was trying to climb out of bed, DAVID Lovelace and myself approached pt and explain he couldn't get out of bed. Assisted pt back to bed, pt laid down and started seizing at which time Dr Welch was called to the room as pt began vomiting blood as well as stooling blood. At that time a rapid response was called, it was determined that the pt would need to be intubated as he was audibly wheezing, and screaming I can't breathe. Anesthesia was called in 1640 Prop 100mg 1640 Succ 100mg 1645 Epi 10 (with an additional 20 given while attempting to stabilize, place central line and art line) 1644 Intubated and positive color change, Propofol gtt started At this time the Surgeon arrived, ordered 2 additional units of PRBC, rainbow labs and placed a femoral central line. Norepi started (see emar for vital trends) It was then determined that the pt would be transported back to the OR for line placement and exploratory surgery. Notified by lab of Critical H/H 6.920.1 Pt transported by OR team, this nurse, Shasha RN, Jhon RT, no further pt contact at this time.
--- NOTE | 2025-02-05 18:44 | P.TELICUCN_ITS ---
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 Coags within normal but Fibrinogen, pending CXR post incubation. EGD showed bleeding DU, s/p Epi injections, electro cautary and endo clips x4. in OR Pt received 4 PRBC, 3 FFP & 1 platelets. Pt off levo now. Acute UGI bleed Acute blood loss anemia Acute metbolic encephalopathy/ Alcohol withdrawal Aspiration Acute hypoxic resp failure 2/2 above On propfol, Versed drip for tonight for deep sedation to avoid further irritation and bleed, in am may add Precedex and slowly wean off Versed, may consider phenobarb as needed On PRVC 18/480/5/100%, wean off Fio2 for sat goal of 92 Vent bundle care, follow up ABG IV PPI Check Fibrinogen and if still low pls give Cryor or fibrinogen Repeat Coags and fibrinogen ( if available could check TEG) Trend CBC & coags Zosyn empirically for aspiration PNA SCD for vte ppx NPO Durham cath I/O Plan discussed with Staff CCT 45 min [facility] Social History household members: significant other Smoking Status: Current every day smoker alcohol intake: current Current Medications Current Medications Medications: Home Medications No Known Home Medications 02/05/25 [History Confirmed 02/05/25] Visit Medications (administered) Generic Name Dose Route Start Last Admin Trade Name Freq PRN Reason Stop Dose Admin Sodium Chloride 1,000 mls @ 125 mls/hr 02/04/25 20:00 02/05/25 08:42 Normal Saline 0.9% IV 125 mls/hr CONT MICHAEL Administration Morphine Sulfate 3 mg 02/04/25 19:49 02/05/25 14:43 Morphine 4 Mg/Ml Inj IV 3 mg Q2HR PRN Administration Pain, Severe (7-10) Pantoprazole Sodium 40 mg 02/05/25 13:02 02/05/25 13:04 Pantoprazole 40 Mg Vial IV 40 mg BID MICHAEL Administration Exam Vital Signs (past 8 hours): - 02/05/25 11:00 02/05/25 11:15 02/05/25 11:20 Temperature Pulse Rate 103 H 103 H Respiratory Rate 20 22 Blood Pressure 119/61 115/56 L Pulse Oximetry 96 Oxygen Delivery Method Room Air Room Air Room Air 02/05/25 11:41 02/05/25 11:57 02/05/25 11:58 Temperature Pulse Rate 93 H 93 H 94 H Respiratory Rate 16 Blood Pressure 112/65 Pulse Oximetry 95 81 L 75 L Oxygen Delivery Method Room Air 02/05/25 11:58 02/05/25 12:00 02/05/25 12:00 Temperature Pulse Rate 99 H Respiratory Rate Blood Pressure 121/73 123/69 Pulse Oximetry Oxygen Delivery Method 02/05/25 12:14 02/05/25 12:30 02/05/25 12:30 Temperature 98.8 F Pulse Rate 111 H 102 H Respiratory Rate 20 22 Blood Pressure 123/69 148/72 H Pulse Oximetry 84 L Oxygen Delivery Method 02/05/25 12:45 02/05/25 12:45 02/05/25 13:00 Temperature Pulse Rate 105 H Respiratory Rate 20 Blood Pressure 132/74 137/73 Pulse Oximetry 83 L Oxygen Delivery Method 02/05/25 13:00 02/05/25 13:15 02/05/25 13:15 Temperature Pulse Rate 103 H 95 H Respiratory Rate 18 19 Blood Pressure 136/68 Pulse Oximetry 98 100 Oxygen Delivery Method 02/05/25 13:30 02/05/25 13:30 02/05/25 13:45 Temperature Pulse Rate 100 H Respiratory Rate 14 Blood Pressure 111/70 118/62 Pulse Oximetry 100 Oxygen Delivery Method 02/05/25 13:45 02/05/25 14:00 02/05/25 14:00 Temperature Pulse Rate 107 H 108 H Respiratory Rate 32 H 24 Blood Pressure 110/57 L Pulse Oximetry 96 94 Oxygen Delivery Method 02/05/25 14:15 02/05/25 14:15 02/05/25 14:30 Temperature Pulse Rate 101 H Respiratory Rate 9 L Blood Pressure 115/67 94/55 L Pulse Oximetry 100 Oxygen Delivery Method 02/05/25 14:30 02/05/25 14:46 02/05/25 14:46 Temperature Pulse Rate 115 H 106 H Respiratory Rate 17 22 Blood Pressure 116/62 Pulse Oximetry 100 96 Oxygen Delivery Method 02/05/25 15:00 02/05/25 15:00 02/05/25 15:19 Temperature 98.4 F Pulse Rate 101 H 103 H Respiratory Rate 27 H 20 Blood Pressure 90/51 L 119/61 Pulse Oximetry 96 Oxygen Delivery Method 02/05/25 15:25 02/05/25 16:50 02/05/25 17:21 Temperature 98.5 F Pulse Rate 100 H 114 H 116 H Respiratory Rate 18 34 H 38 H Blood Pressure 119/61 Pulse Oximetry Oxygen Delivery Method 02/05/25 17:22 02/05/25 17:26 Temperature 98.1 F 98.3 F Pulse Rate 111 H 105 H Respiratory Rate 18 18 Blood Pressure 95/45 L 74/42 L Pulse Oximetry Oxygen Delivery Method Oxygen Delivery Method Room Air Objective Labs 02/05/25 17:23 02/05/25 08:40 Labs: Laboratory Results - last 24 hr 02/04/25 02/04/25 02/04/25 17:56 18:19 20:50 WBC 9.5 RBC 2.51 L Hgb 8.2 L Hct 23.6 L MCV 93.9 MCH 32.8 MCHC 35.0 RDW 13.4 Plt Count 265 Neut % (Auto) 71.0 Lymph % (Auto) 21.8 L Bland % (Auto) 6.4 Eos % (Auto) 0.2 L Baso % (Auto) 0.6 Neut # (Auto) 6800 Lymph # (Auto) 2100 Bland # (Auto) 600 Eos # (Auto) 0 Baso # (Auto) 100 PT INR APTT Fibrinogen Sodium Potassium Chloride Carbon Dioxide BUN Creatinine Estimated GFR BUN/Creatinine Ratio Glucose POC Whole Bld Glucose Calcium Magnesium Total Bilirubin AST ALT Alkaline Phosphatase Total Protein Albumin Globulin Albumin/Globulin Ratio Nasal Screen MRSA (PCR) SARS-CoV-2 (PCR) Negative Influenza A (RT-PCR) Flu a negative Influenza B (RT-PCR) Flu b negative RSV (PCR) Negative Blood Type O Positive Antibody Screen Negative Crossmatch See Detail 02/04/25 02/04/25 02/05/25 21:05 23:30 01:24 WBC 11.7 H RBC 2.85 L Hgb 8.2 L 9.1 L Hct 23.9 L 26.1 L MCV 91.4 MCH 31.8 MCHC 34.8 RDW 14.5 Plt Count 218 Neut % (Auto) 64.9 Lymph % (Auto) 28.3 Bland % (Auto) 5.9 Eos % (Auto) 0.3 L Baso % (Auto) 0.6 Neut # (Auto) 7600 H Lymph # (Auto) 3300 Bland # (Auto) 700 Eos # (Auto) 0 Baso # (Auto) 100 PT INR APTT Fibrinogen Sodium Potassium Chloride Carbon Dioxide BUN Creatinine Estimated GFR BUN/Creatinine Ratio Glucose POC Whole Bld Glucose Calcium Magnesium Total Bilirubin AST ALT Alkaline Phosphatase Total Protein Albumin Globulin Albumin/Globulin Ratio Nasal Screen MRSA (PCR) Not detected SARS-CoV-2 (PCR) Influenza A (RT-PCR) Influenza B (RT-PCR) RSV (PCR) Blood Type Antibody Screen Crossmatch 02/05/25 02/05/25 02/05/25 01:34 08:40 09:20 WBC 11.2 H RBC 2.38 L Hgb 7.5 L Hct 21.5 L MCV 90.4 MCH 31.7 MCHC 35.1 RDW 14.4 Plt Count 210 Neut % (Auto) 66.3 Lymph % (Auto) 26.4 Bland % (Auto) 6.2 Eos % (Auto) 0.5 L Baso % (Auto) 0.6 Neut # (Auto) 7400 H Lymph # (Auto) 2900 Bland # (Auto) 700 Eos # (Auto) 100 Baso # (Auto) 100 PT INR APTT Fibrinogen Sodium 135 L Potassium 4.7 Chloride 115 H Carbon Dioxide 20 L BUN 40 H Creatinine 0.68 Estimated GFR > 60 BUN/Creatinine Ratio 58.8 H Glucose 97 POC Whole Bld Glucose 139 H Calcium 7.5 L Magnesium 1.5 L Total Bilirubin 0.6 AST 21 ALT 17 Alkaline Phosphatase 44 Total Protein 3.9 L Albumin 2.1 L Globulin 1.8 Albumin/Globulin Ratio 1.2 Nasal Screen MRSA (PCR) SARS-CoV-2 (PCR) Influenza A (RT-PCR) Influenza B (RT-PCR) RSV (PCR) Blood Type Antibody Screen Crossmatch 02/05/25 17:23 WBC RBC Hgb 6.9 L* Hct 20.1 L* MCV MCH MCHC RDW Plt Count 169 Neut % (Auto) Lymph % (Auto) Bland % (Auto) Eos % (Auto) Baso % (Auto) Neut # (Auto) Lymph # (Auto) Bland # (Auto) Eos # (Auto) Baso # (Auto) PT 13.6 H INR 1.2 APTT 27 Fibrinogen 139 L Sodium Potassium Chloride Carbon Dioxide BUN Creatinine Estimated GFR BUN/Creatinine Ratio Glucose POC Whole Bld Glucose Calcium Magnesium Total Bilirubin AST ALT Alkaline Phosphatase Total Protein Albumin Globulin Albumin/Globulin Ratio Nasal Screen MRSA (PCR) SARS-CoV-2 (PCR) Influenza A (RT-PCR) Influenza B (RT-PCR) RSV (PCR) Blood Type Antibody Screen Crossmatch Assessment & Plan Time-Based Coding :: [TOTAL MINUTES] spent with patient and on the chart (including review of chart, obtaining history, exam, reviewing outside data, placing orders, documenting exam and treatment plan, and counseling patient) on [DATE].
--- NOTE | 2025-02-05 18:57 | PM.PROC.1 ---
Procedures Date/Time Date of procedure: 02/05/25 Time of procedure: 16:40 Intubation Time out performed: Yes Sedative: other (PROPOFOL 100 MG) Paralytic: succinylcholine (100 MG) Laryngoscope: other (GLIDESCOPE 3) ET tube size: 7 ET tube uncuffed: No Tube secured depth (cm): 22 Tube secured location: teeth (22) Tube placement confirmation: visualized tube passing through cords, equal breath sounds bilaterally, no breath sounds over epigastrium and confirmation by capnometry Patient tolerated procedure: well Intubation complications: none Additional comments: wrong provider. See note under Leila Varner ARRIVED 1635, PT TACHYPNEA, ASHEN COLOR DIFFICULT TO OBTAIN VITALS PATIENT WAS VERY AGITATED. DR ALMEIDA AT BEDSIDE REQUESTING INTUBATION. 1640 Prop 100mg 1640 Succ 100mg 1644 Intubated WITHOUT COMPLICATIONS and positive color change, Propofol gtt started 1645 EPHEDRINE 10MG (with an additional 20MG given while attempting to stabilize, place central line and art line) At this time the Surgeon arrived, ordered 2 additional units of PRBC, rainbow labs and placed a femoral central line. Norepi started (see emar for vital trends) It was then determined that the pt would be transported back to the OR for line placement and exploratory surgery. Notified by lab of Critical H/H 6.9/20.1 Pt transported by OR team, this nurse, Shasha RN, Jhon RT, no further pt contact at this time.
--- NOTE | 2025-02-05 19:28 | PM.OP.EGD ---
Operative Date/Time/Diagnoses Date of procedure: 02/05/25 Time of procedure: 06:00 Pre-op diagnosis: recurrent doudenal ulcer bleed with acute blood loss and hypotension Post-op diagnosis: same
--- NOTE | 2025-02-05 19:51 | P.OP.EGD_ITS ---
Operative Date/Time/Diagnoses Date of procedure: 02/05/25 Time of procedure: 18:00 Pre-op diagnosis: Recurrent duodenal ulcer bleeding with massive acute hemorrhage and hypotension Post-op diagnosis: same (Active arterial bleeding from duodenal ulcer bed) Procedure & Clinicians Study performed: EGD with general inhalation endotracheal anesthetic with control of duodenal ulcer bleeding with injection of epinephrine hot biopsy forceps and Endoclips x4 Same procedure(s) as scheduled: Yes Indications: Acute recurrent duodenal ulcer bleeding Surgeon: Abdulaziz Payne Anesthesia Type: General Procedure Notes Procedure in detail: Patient was initially seen in consultation this a.m. for a upper GI bleed with acute blood loss anemia patient underwent EGD with biopsy of ulcer no active bleeding at the time. Patient was placed on H2 blockers antacids and Carafate. Patient had an episode of recurrent bleeding with appearance of a seizure activity patient was immediately intubated fluid resuscitated and blood products were given. Patient was taken back to surgery suite for repeat EGD for control of recurrent duodenal ulcer bleeding with possible exploratory laparotomy with gastric resection. Unable to reach any family members patient was intubated and was done under emergency circumstances. Patient stat lab showed a WBC of 11.2 hemoglobin of 6.9 hematocrit is 20.1 platelets are 169,000. Patient was taken immediately to the OR was placed in the supine position underwent massive fluid resuscitation patient also had right femoral triple-lumen central venous catheter multiple attempts were made at art lines patient had NG tube placed prior to going to the OR. In the OR patient had oral bite block was placed underwent further resuscitations video EGD scope was then lubricated and advanced through the oropharyngeal cavity vocal cords could not be seen as do endotracheal tube scope was advanced through the esophagus with the NG tube noted in place old blood was noted within the gastric lumen the pylorus was identified and easily cannulated a large amount of blood and clot was noted in the duodenum this was suctioned and irrigated out to the best of our ability in the duodenal bulb patient was again noted to have the ulcer with an overlying inflammatory area and clot. This was washed off and then was injected in the base in 4 quadrants with a GI injection needle with epinephrine patient then und erwent electrocautery of the base and surrounding tissue. Patient still continued to have small arterial oozing patient was underwent endo clips x4 surrounding the ulcer base with cessation of the bleeding patient was further irrigated and observed for approximately 20 minutes to make sure that is going to be no further bleeding with desufflation no further bleeding was noted. Patient underwent further resuscitation warming patient had had SCDs were placed [place] catheter had been placed in the ICU patient continued to be monitored patient's central line was switched from the right femoral area to the right eye internal jugular area by anesthesia. Patient was given 3 units of packed RBCs in OR 3 of FFP and 1 bag of platelets. Chest x-ray was performed which showed positioning in the superior vena cava with no signs of pneumothorax the tip of the endotracheal tube could not be seen as the neck was not in the film. Patient tolerated the procedure well without further incident patient was quite hypothermic he was given Juan Hugger and warming fluids throughout the procedure patient returned to ICU we will continue on the ventilator with aggressive transfusions warming. If patient has any further bleeding would warrant doing an exploratory laparotomy with antral resection and gastrojejunostomy. Multiple attempts have been made to contact the patient's family with no success we will follow patient closely and carefully. Patient's prognosis is guarded. Findings: duodenal ulcer Specimen(s): none sent Complications: other Impression: Recurrent duodenal ulcer bleeding with acute hemorrhagic blood loss hypotension seizure Post-procedure Disposition: ICU
[2025-02-05] MEDS: EPINEPHrine 1 MG/ML IV (20:34)
[2025-02-05 20:49] LABS: Blood Gas Collection Site Arterial Line; HCO3 ABG 20 mmol/L (23-27); Oxygen Saturation ABG 100 % (95-100); PCO2 ABG 41.2 mmHg (35-45); PO2 ABG 535 mmHg (80-100); TCO2 ABG 19 mmol/L (23-27)
[2025-02-05] MEDS: MIDAZOLAM 50 MG in DEXTROSE 5 % IN WATER 40 ML IV (21:14)
--- NOTE | 2025-02-05 21:38 | P.PCN_ITS ---
Procedures Date/Time Date of procedure: 02/05/25 Time of procedure: 18:11 Arterial Line Time out performed: Yes Size (Gauge): 20 Technique used: other (guidewire with ultrasound guidance) Post-Procedure: line sutured into place and dry sterile dressing placed Patient tolerated procedure: Well Complications: none Site: left and right Additional comments: placed by NIKUNJ academic interventionist
--- NOTE | 2025-02-05 21:39 | P.PCN_ITS ---
Procedures Date/Time Date of procedure: 02/05/25 Time of procedure: 19:25 Arterial Line Size (Gauge): 20 Central Line Placement Time out performed: Yes Patient placed on monitor/pulse ox: Yes MD prep: mask, gown and gloves Central line prep: Chlorhexidine scrub Local anesthesia used: other anesthetic (under GETA) Ultrasound used for placement: Yes Central line lumen inserted: triple Post procedure: sutured in place, good blood return, all ports aspirated, flushed, capped and sterile dressing applied Post procedure x-ray: tip of catheter in good position and no pneumothorax seen Patient tolerated procedure: well and no complications Complications: none Additional comments: R TL CVC * Set up equipment and flushes all lumens with 0.9% Saline * Ultrasound identification of internal jugular vein and depth (confirm vein is compressible and locate artery) * Insert needle for guidewire under ultrasound guidance, aspirating until withdraw blood * Remove syringe and thread guidewire through needle * Inserted guidewire to a depth of 16cm (checking for arrythmia on ECG monitoring) * Removed needle after wire placement and confirm that the guidewire is in a vein (using ultrasound) * Used scalpel to josafat a tract (through skin only) next to the guidewire * Thread dilator over wire into the vein (6-8cm usually enough) * Thread the catheter over the wire * Insertion depth: 16 cm * Removed wire and lock catheter to prevent flow of blood * Confirmed that the guidewire is complete, and the tip has not been damaged * Aspirated and flush all lumens * Sutured at the skin and at the anchor point x 4 * Applied sterile transparent semipermeable dressing
--- NOTE | 2025-02-05 21:39 | PM.PROC.1 ---
Procedures Date/Time Date of procedure: 02/05/25 Time of procedure: 19:25 Arterial Line Size (Gauge): 20 Central Line Placement Time out performed: Yes Patient placed on monitor/pulse ox: Yes MD prep: mask, gown and gloves Central line prep: Chlorhexidine scrub Local anesthesia used: other anesthetic (under GETA) Ultrasound used for placement: Yes Central line lumen inserted: triple Post procedure: sutured in place, good blood return, all ports aspirated, flushed, capped and sterile dressing applied Post procedure x-ray: tip of catheter in good position and no pneumothorax seen Patient tolerated procedure: well and no complications Complications: none Additional comments: R TL CVC Set up equipment and flushes all lumens with 0.9% Saline Ultrasound identification of internal jugular vein and depth (confirm vein is compressible and locate artery) Insert needle for guidewire under ultrasound guidance, aspirating until withdraw blood Remove syringe and thread guidewire through needle Inserted guidewire to a depth of 16cm (checking for arrythmia on ECG monitoring) Removed needle after wire placement and confirm that the guidewire is in a vein (using ultrasound) Used scalpel to josafat a tract (through skin only) next to the guidewire Thread dilator over wire into the vein (6-8cm usually enough) Thread the catheter over the wire Insertion depth: 16 cm Removed wire and lock catheter to prevent flow of blood Confirmed that the guidewire is complete, and the tip has not been damaged Aspirated and flush all lumens Sutured at the skin and at the anchor point x 4 Applied sterile transparent semipermeable dressing
--- NOTE | 2025-02-05 21:42 | SUR.PHASEI ---
Patient transported from OR to ICU
--- NOTE | 2025-02-05 21:44 | SUR.PHASEI ---
Patient transported to ICU post-procedure on surveillance system monitor and ventilator with PACU nurse, OR nurse and Anesthesia provider. Bedside report given to ICU staff.
--- NOTE | 2025-02-05 21:47 | PM.PROC.1 ---
Procedures Date/Time Date of procedure: 02/05/25 Time of procedure: 21:48 Arterial Line Size (Gauge): 20 Intubation Time out performed: Yes Sedative: other (propofol) Mg given: 100 Paralytic: succinylcholine Mg given: 100 Laryngoscope: other (glidescope 3) ET tube size: 7 ET tube uncuffed: No Tube secured depth (cm): 22 Tube secured location: teeth Tube placement confirmation: visualized tube passing through cords, equal breath sounds bilaterally, no breath sounds over epigastrium and confirmation by capnometry Patient tolerated procedure: well Intubation complications: none Additional comments: ARRIVED 1635, PT TACHYPNEA, ASHEN COLOR DIFFICULT TO OBTAIN VITALS PATIENT WAS VERY AGITATED. DR ALMEIDA AT BEDSIDE REQUESTING INTUBATION. 1640 Prop 100mg 1640 Succ 100mg 1644 Intubated WITHOUT COMPLICATIONS and positive color change, Propofol gtt started 1645 EPHEDRINE 10MG (with an additional 20MG given while attempting to stabilize, place central line and art line) At this time the Surgeon arrived, ordered 2 additional units of PRBC, rainbow labs and placed a femoral central line. Norepi started (see emar for vital trends) It was then determined that the pt would be transported back to the OR for line placement and exploratory surgery. Notified by lab of Critical H/H 6.9/20.1 Pt transported by OR team, this nurse, Shasha RN, Jhon RT, no further pt contact at this time.
[2025-02-05 22:27] LABS: HCO3 ABG 16 mmol/L (23-27); Oxygen Saturation ABG 98 % (95-100); PCO2 ABG 30.0 mmHg (35-45); PO2 ABG 101 mmHg (80-100); TCO2 ABG 16 mmol/L (23-27)
[2025-02-05 22:56] LABS: Hematocrit 18.2 % (41-53); Hemoglobin 6.3 g/dL (13.5-17.5)
[2025-02-06] VITALS (74 sets, daily range): BP systolic 74–160; BP diastolic 48–87; PULSE 88–114; RESP 0–19; TEMP 36.4–37.7; O2SAT 87–109
[2025-02-06] MEDS: PIPERACILLIN/TAZO 3.375 GM in SODIUM CHLORIDE 0.9% 100 ML IV ×3 (01:44→18:31)
[2025-02-06] MEDS: MORPHINE 4 MG/ML INJ 3 MG IV (01:46)
[2025-02-06] MEDS: PANTOPRAZOLE 40 MG VIAL IV ×3 (01:46→20:48)
[2025-02-06 04:52] LABS: HCO3 ABG 16 mmol/L (23-27); Oxygen Saturation ABG 98 % (95-100); PCO2 ABG 25.7 mmHg (35-45); PO2 ABG 102 mmHg (80-100); TCO2 ABG 15 mmol/L (23-27)
--- NOTE | 2025-02-06 06:30 | DI.RAD.S_ITS ---
PROCEDURE: XR CHEST 1V INDICATIONS: NG placement TECHNIQUE: One view of the chest was acquired. COMPARISON: [facility], CR, XR CHEST 1V, 02/05/2025, 19:20. FINDINGS: Surgical changes and devices: NG tube tip is in stomach lumen below the left hemidiaphragm. Right internal jugular central venous catheter tip is in SVC. Lungs and pleura: Pulmonary vascular congestion. Airspace opacities are seen scattered in bilateral perihilar and infrahilar region. No significant pleural effusion. No pneumothorax. Mediastinum: Mediastinal contours appear normal. Heart size is enlarged. Bones and chest wall: No suspicious bony lesions. Overlying soft tissues appear unremarkable. IMPRESSION: Cardiomegaly and pulmonary vascular congestion. Small patchy infiltrate/atelectasis in bilateral lower lung mosley. No pleural effusion or pneumothorax. Dictated by: Msasimo Valencia M.D. on 02/06/2025 at 9:01 Approved by: Massimo Valencia M.D. on 02/06/2025 at 9:02
--- NOTE | 2025-02-06 08:16 | PC.NURSE ---
Late Entry MAR titration of Levophed 0350 inc to 0.12 (BP 94/54 MAP 60) 0410 inc to 0.14 (BP 88/55 MAP 52) 0440 inc to 0.16 (BP 96/48 MAP 63) 0520 dec to 0.14 (BP 140/65 MAP 96) 0640 inc to 0.15 (BP95/46 MAP 67)
[2025-02-06 08:20] LABS: Alanine Aminotransferase 20 IU/L (<50); Albumin 2.3 g/dL (3.5-5.0); Albumin Globulin Ratio 1.0 (1.0-2.8); Alkaline Phosphatase 47 U/L (38-126); Blood Urea Nitrogen 36 mg/dL (9-20); Calcium 7.8 mg/dL (8.4-10.2); Carbon Dioxide 19 mmol/L (22-32); Chloride 112 mmol/L (98-107); Estimated Glomerular Filt Rate > 60 mL/min (>60); Globulin 2.2 g/dL (1.7-4.1); Glucose 107 mg/dL (70-99); HEMOLYSIS < 15 (0-50); Magnesium 1.9 mg/dL (1.6-2.3); Potassium 4.7 mmol/L (3.4-5.1); Sodium 136 mmol/L (137-145); Total Protein 4.5 g/dL (6.3-8.2)
--- NOTE | 2025-02-06 08:31 | PM.PN.IH.1 ---
Subjective Subjective Date Patient Seen: 02/05/25 Time Patient Seen: 08:30 Interval history: Patient is seen in the ICU resting on the ventilator sedated ventilator management and medical management as per hospitalist. Patient has had minimal output out of the NG patient is making good urine chest x-ray was viewed showing emphysematous COPD changes with lines inappropriate places endotracheal tube appropriate place. Patient was hypertensive during the evening cut back on fluids. Patient has received total of 11 units of packed RBCs 3 units of FFP 1 of cryoprecipitate and 1 bag of platelets. Morning CBC is pending. Ventilator settings are FiO2 of 24% tidal volume of 500 peep of 5 pH is 7.40 pCO2 is 25.7 PO2 is 102 base excess is -8.1 SaO2 is 98% sodium is 136 potassium 4.7 chloride 112 bicarb is 19 BUN of 36 creatinine is 1.03 random blood sugar is 107 total bilirubin is 0.5 AST is 33 alkaline phosphatase 20 coags are pending. Vitals temperature is 98.7? pulse is 104 respirations 17 on ventilator BP is 112/50 with a pulse ox of 99% Patient is sedated paralyzed on the ventilator heart regular rate and rhythm with slight tachycardia. Lungs diminished but good breath sounds bilaterally no rales rhonchi or wheezes noted. Abdomen is slightly distended but soft hypoactive bowel sounds with NG clamped no masses or peritoneal signs previous IV access sites are clear no signs of bleeding. Impression: Postop day 1. EGD with duodenal ulcer nonbleeding with rebleeding later in the afternoon with massive transfusion protocols and control of bleeding endoscopically History of tobacco abuse Atherosclerotic vascular disease with peripheral vascular disease history of a previous CVA patient failed to follow-up for treatment Hypertension uncontrolled Previous history of polypharmacy drug abuse Plan: We will continue with current medical management no need for emergent return to surgery at this time we will adjust medications and blood products as according to laboratory. Patient is stable at this time no need for emergent return to surgery but if needed would do a exploratory laparotomy with antrectomy and gastrojejunostomy to control the bleeding source. But with patient's massive transfusion coexisting medical problems it would be at high risk for complications and problems due to 2 previous scopes hypothermia and massive transfusions we will follow patient closely and carefully patient's prognosis is guarded. Exam Vital Signs (past 8 hours): - 02/06/25 01:00 02/06/25 01:00 02/06/25 01:30 Temperature Pulse Rate 112 H 113 H Respiratory Rate 0 L 0 L Blood Pressure Pulse Oximetry 99 92 Oxygen Delivery Method Mechanical Ventilation 02/06/25 01:32 02/06/25 01:57 02/06/25 01:57 Temperature 99.9 F H Pulse Rate 112 H 114 H Respiratory Rate 16 0 L Blood Pressure 124/68 99/55 L Pulse Oximetry 91 Oxygen Delivery Method 02/06/25 02:00 02/06/25 02:23 02/06/25 02:23 Temperature Pulse Rate 114 H 114 H Respiratory Rate 0 L 13 Blood Pressure 120/69 Pulse Oximetry 89 L 99 Oxygen Delivery Method 02/06/25 02:30 02/06/25 03:00 02/06/25 03:30 Temperature Pulse Rate 111 H 110 H 109 H Respiratory Rate 0 L 9 L 0 L Blood Pressure Pulse Oximetry 99 100 99 Oxygen Delivery Method 02/06/25 04:00 02/06/25 04:11 02/06/25 04:29 Temperature 98.7 F 98.7 F 98.7 F Pulse Rate 105 H 105 H 104 H Respiratory Rate 18 17 17 Blood Pressure 111/53 L 120/69 107/54 L Pulse Oximetry 99 Oxygen Delivery Method 02/06/25 05:00 02/06/25 07:39 Temperature 98.7 F Pulse Rate 104 H Respiratory Rate 17 Blood Pressure 112/50 L Pulse Oximetry Oxygen Delivery Method Mechanical Ventilation Oxygen Delivery Method Mechanical Ventilation Objective Labs 02/06/25 08:38 02/06/25 07:52 Labs: Laboratory Results - last 24 hr 02/04/25 02/05/25 02/05/25 18:19 08:40 09:20 WBC 11.2 H RBC 2.38 L Hgb 7.5 L Hct 21.5 L MCV 90.4 MCH 31.7 MCHC 35.1 RDW 14.4 Plt Count 210 Neut % (Auto) 66.3 Lymph % (Auto) 26.4 [place] % (Auto) 6.2 Eos % (Auto) 0.5 L Baso % (Auto) 0.6 Neut # (Auto) 7400 H Lymph # (Auto) 2900 [place] # (Auto) 700 Eos # (Auto) 100 Baso # (Auto) 100 PT INR APTT Fibrinogen ABG Sample Site ABG pH ABG pCO2 ABG pO2 ABG HCO3 ABG Total CO2 ABG O2 Saturation ABG Base Excess Vladimir Test Sodium 135 L Potassium 4.7 Chloride 115 H Carbon Dioxide 20 L BUN 40 H Creatinine 0.68 Estimated GFR > 60 BUN/Creatinine Ratio 58.8 H Glucose 97 POC Whole Bld Glucose Calcium 7.5 L Magnesium 1.5 L Total Bilirubin 0.6 AST 21 ALT 17 Alkaline Phosphatase 44 Total Protein 3.9 L Albumin 2.1 L Globulin 1.8 Albumin/Globulin Ratio 1.2 Blood Type O Positive Antibody Screen Negative Crossmatch See Detail 02/05/25 02/05/25 02/05/25 17:23 20:44 22:22 WBC RBC Hgb 6.9 L* Hct 20.1 L* MCV MCH MCHC RDW Plt Count 169 Neut % (Auto) Lymph % (Auto) [place] % (Auto) Eos % (Auto) Baso % (Auto) Neut # (Auto) Lymph # (Auto) [place] # (Auto) Eos # (Auto) Baso # (Auto) PT 13.6 H INR 1.2 APTT 27 Fibrinogen 139 L ABG Sample Site Arterial line ABG pH 7.30 L 7.35 ABG pCO2 41.2 30.0 L ABG pO2 535 H* 101 H ABG HCO3 20 L 16 L ABG Total CO2 19 L 16 L ABG O2 Saturation 100 98 ABG Base Excess -5.8 L -8.5 L Vladimir Test N/a Sodium Potassium Chloride Carbon Dioxide BUN Creatinine Estimated GFR BUN/Creatinine Ratio Glucose POC Whole Bld Glucose Calcium Magnesium Total Bilirubin AST ALT Alkaline Phosphatase Total Protein Albumin Globulin Albumin/Globulin Ratio Blood Type Antibody Screen Crossmatch 02/05/25 02/06/25 02/06/25 22:35 04:46 06:22 WBC RBC Hgb 6.3 L* Hct 18.2 L* MCV MCH MCHC RDW Plt Count Neut % (Auto) Lymph % (Auto) [place] % (Auto) Eos % (Auto) Baso % (Auto) Neut # (Auto) Lymph # (Auto) [place] # (Auto) Eos # (Auto) Baso # (Auto) PT INR APTT Fibrinogen ABG Sample Site ABG pH 7.40 ABG pCO2 25.7 L ABG pO2 102 H ABG HCO3 16 L ABG Total CO2 15 L ABG O2 Saturation 98 ABG Base Excess -8.1 L Vladimir Test Sodium Potassium Chloride Carbon Dioxide BUN Creatinine Estimated GFR BUN/Creatinine Ratio Glucose POC Whole Bld Glucose 104 H Calcium Magnesium Total Bilirubin AST ALT Alkaline Phosphatase Total Protein Albumin Globulin Albumin/Globulin Ratio Blood Type Antibody Screen Crossmatch 02/06/25 07:52 WBC RBC Hgb Hct MCV MCH MCHC RDW Plt Count Neut % (Auto) Lymph % (Auto) [place] % (Auto) Eos % (Auto) Baso % (Auto) Neut # (Auto) Lymph # (Auto) [place] # (Auto) Eos # (Auto) Baso # (Auto) PT INR APTT Fibrinogen ABG Sample Site ABG pH ABG pCO2 ABG pO2 ABG HCO3 ABG Total CO2 ABG O2 Saturation ABG Base Excess Vladimir Test Sodium 136 L Potassium 4.7 Chloride 112 H Carbon Dioxide 19 L BUN 36 H Creatinine 1.03 Estimated GFR > 60 BUN/Creatinine Ratio 35.0 H Glucose 107 H POC Whole Bld Glucose Calcium 7.8 L Magnesium 1.9 Total Bilirubin 0.5 AST 33 ALT 20 Alkaline Phosphatase 47 Total Protein 4.5 L Albumin 2.3 L Globulin 2.2 Albumin/Globulin Ratio 1.0 Blood Type Antibody Screen Crossmatch [facility] Social History household members: significant other Smoking Status: Current every day smoker alcohol intake: current Assessment & Plan Time-Based Coding :: [TOTAL MINUTES] spent with patient and on the chart (including review of chart, obtaining history, exam, reviewing outside data, placing orders, documenting exam and treatment plan, and counseling patient) on [DATE]. 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
[2025-02-06 08:32] LABS: Troponin I 0.042 ng/mL (0.01-0.034)
[2025-02-06] MEDS: fentaNYL 1,000 MCG in DEXTROSE 5% IN WATER 230 ML 15.082 MCG IV (08:45)
[2025-02-06 08:52] LABS: Add Manual Diff / Slide Review NO; Hematocrit 27.3 % (41-53); Hemoglobin 9.1 g/dL (13.5-17.5); Lymphocytes Absolute Auto 1500 /uL (1100-4500); Mean Corpuscular HGB Conc 33.4 % (30-36); Mean Corpuscular Hemoglobin 30.4 PG (26-34); Mean Corpuscular Volume 91.0 fL (80-100); Platelet Count 145 X10^3/uL (150-400)
--- NOTE | 2025-02-06 09:31 | EKG_ITS ---
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
[2025-02-06] MEDS: MIDAZOLAM 50 MG in DEXTROSE 5 % IN WATER 40 ML 5.171 MG IV (09:47)
--- NOTE | 2025-02-06 11:00 | PM.PN.EICU ---
Subjective Subjective IF CAMERA ACTIVATED, patient seen via real-time interactive audiovisual communication: Camera activated Consent obtained for tele-demonstrator sewing techniques care: Yes Patient Location: ICU Provider location (State): Other participants/roles: RN & MD Interval history: Following on 64-year-old white male presented with H/O of Hematochazia & melena, started on 02/04/2025, on 02/05 pt did undergo EGD which showed non bleeding DU, today became agitated & SOB complicated by hematemesis requiring intubation, concern for aspiration, HB 12->7, MTP & levophed was started for Hgic shock & pt was taken to OR for EGD. Coags within normal but Fibrinogen, pending CXR post incubation. EGD showed bleeding DU, s/p Epi injections, electro cautary and endo clips x4. in OR Pt received 4 PRBC, 3 FFP & 1 platelets. Today: Remained sedated & intubated, off pressor, HB stable at 9, plat to 145 Acute UGI bleed Acute blood loss anemia Acute metbolic encephalopathy/ Alcohol withdrawal Aspiration Acute hypoxic resp failure 2/2 above Plan to keep deeply sedated & intubated given the risk of further GI bleeding, continue propfole & Versed drip for today On PRVC 18/480/5/30%, wean off Fio2 for sat goal of 92 Vent bundle care, follow up ABG IV PPI Check Fibrinogen and if still low pls give Cryor or fibrinogen Trend CBC & coags Zosyn empirically for aspiration PNA SCD for vte ppx NPO [place] cath I/O Plan discussed with Staff CCT 30 min Current Medications Current Medications Medications: Home Medications No Known Home Medications 02/05/25 [History Confirmed 02/05/25] Visit Medications (administered) Generic Name Dose Route Start Last Admin Trade Name Freq PRN Reason Stop Dose Admin Sodium Chloride 1,000 mls @ 125 mls/hr 02/04/25 20:00 02/05/25 20:40 Normal Saline 0.9% IV Infused CONT MICHAEL Infusion Midazolam HCl 50 mg/ Dextrose 50 mls @ 1.724 mls/hr 02/05/25 19:44 02/06/25 09:47 IV 0.06 mg/kg/hr TITRATE PRN 5.171 mls/hr Agitation Administration 0.02 MG/KG/HR Propofol 1,000 mg in 100 mls @ 2.585 mls/hr 02/05/25 20:15 02/06/25 09:02 Diprivan IV 40 mcg/kg/min TITRATE MICHAEL 20.684 mls/hr Protocol Administration 5 MCG/KG/MIN Piperacillin Sod/Tazobactam 100 mls @ 25 mls/hr 02/06/25 10:00 02/06/25 10:48 Sod 3.375 gm/ Sodium Chloride IV 25 mls/hr Q8H MICHAEL Administration Fentanyl 1,000 mcg/ Dextrose 250 mls @ 15.082 mls/hr 02/06/25 08:15 02/06/25 08:45 IV 0.7 mcg/kg/hr TITRATE MICHAEL 15.082 mls/hr Protocol Administration 0.7 MCG/KG/HR Morphine Sulfate 3 mg 02/04/25 19:49 02/06/25 01:46 Morphine 4 Mg/Ml Inj IV 3 mg Q2HR PRN Administration Pain, Severe (7-10) Pantoprazole Sodium 40 mg 02/05/25 13:02 02/06/25 09:04 Pantoprazole 40 Mg Vial IV 40 mg BID MICHAEL Administration Objective Ventilator Parameters: Ventilator Settings FiO2 24 RT Vent Frequency 14 Ventilator Tidal Volume 480 Exhaled Vt/kg IBW 7 Positive End Expiratory 5 Pressure Inspiratory Phase Time 0.95 Patient Position HOB >= 30 degrees Labs 02/06/25 08:38 02/06/25 07:52 Labs: Laboratory Results - last 24 hr 02/04/25 02/05/25 02/05/25 18:19 17:23 20:44 WBC RBC Hgb 6.9 L* Hct 20.1 L* MCV MCH MCHC RDW Plt Count 169 Neut % (Auto) Lymph % (Auto) [place] % (Auto) Eos % (Auto) Baso % (Auto) Neut # (Auto) Lymph # (Auto) [place] # (Auto) Eos # (Auto) Baso # (Auto) PT 13.6 H INR 1.2 APTT 27 Fibrinogen 139 L ABG Sample Site Arterial line ABG pH 7.30 L ABG pCO2 41.2 ABG pO2 535 H* ABG HCO3 20 L ABG Total CO2 19 L ABG O2 Saturation 100 ABG Base Excess -5.8 L Vladimir Test N/a Sodium Potassium Chloride Carbon Dioxide BUN Creatinine Estimated GFR BUN/Creatinine Ratio Glucose POC Whole Bld Glucose Calcium Magnesium Total Bilirubin AST ALT Alkaline Phosphatase Troponin I Total Protein Albumin Globulin Albumin/Globulin Ratio Blood Type O Positive Antibody Screen Negative Crossmatch See Detail 02/05/25 02/05/25 02/06/25 22:22 22:35 04:46 WBC RBC Hgb 6.3 L* Hct 18.2 L* MCV MCH MCHC RDW Plt Count Neut % (Auto) Lymph % (Auto) [place] % (Auto) Eos % (Auto) Baso % (Auto) Neut # (Auto) Lymph # (Auto) [place] # (Auto) Eos # (Auto) Baso # (Auto) PT INR APTT Fibrinogen ABG Sample Site ABG pH 7.35 7.40 ABG pCO2 30.0 L 25.7 L ABG pO2 101 H 102 H ABG HCO3 16 L 16 L ABG Total CO2 16 L 15 L ABG O2 Saturation 98 98 ABG Base Excess -8.5 L -8.1 L Vladimir Test Sodium Potassium Chloride Carbon Dioxide BUN Creatinine Estimated GFR BUN/Creatinine Ratio Glucose POC Whole Bld Glucose Calcium Magnesium Total Bilirubin AST ALT Alkaline Phosphatase Troponin I Total Protein Albumin Globulin Albumin/Globulin Ratio Blood Type Antibody Screen Crossmatch 02/06/25 02/06/25 02/06/25 06:22 07:52 08:38 WBC 18.2 H D RBC 2.99 L Hgb 9.1 L Hct 27.3 L MCV 91.0 MCH 30.4 MCHC 33.4 RDW 14.2 Plt Count 145 L Neut % (Auto) 87.1 H D Lymph % (Auto) 8.3 L [place] % (Auto) 4.4 Eos % (Auto) 0.0 L Baso % (Auto) 0.2 Neut # (Auto) 60124 H Lymph # (Auto) 1500 [place] # (Auto) 800 Eos # (Auto) 0 Baso # (Auto) 0 PT INR APTT Fibrinogen ABG Sample Site ABG pH ABG pCO2 ABG pO2 ABG HCO3 ABG Total CO2 ABG O2 Saturation ABG Base Excess Vladimir Test Sodium 136 L Potassium 4.7 Chloride 112 H Carbon Dioxide 19 L BUN 36 H Creatinine 1.03 Estimated GFR > 60 BUN/Creatinine Ratio 35.0 H Glucose 107 H POC Whole Bld Glucose 104 H Calcium 7.8 L Magnesium 1.9 Total Bilirubin 0.5 AST 33 ALT 20 Alkaline Phosphatase 47 Troponin I 0.042 H Total Protein 4.5 L Albumin 2.3 L Globulin 2.2 Albumin/Globulin Ratio 1.0 Blood Type Antibody Screen Crossmatch Exam Vital Signs (past 8 hours): - 02/06/25 03:30 02/06/25 04:00 02/06/25 04:11 Temperature 98.7 F 98.7 F Pulse Rate 109 H 105 H 105 H Respiratory Rate 0 L 18 17 Blood Pressure 111/53 L 120/69 Pulse Oximetry 99 99 Oxygen Delivery Method 02/06/25 04:29 02/06/25 04:30 02/06/25 05:00 Temperature 98.7 F Pulse Rate 104 H 104 H Respiratory Rate 17 17 Blood Pressure 107/54 L Pulse Oximetry 99 Oxygen Delivery Method Mechanical Ventilation 02/06/25 05:00 02/06/25 05:30 02/06/25 06:00 Temperature Pulse Rate 102 H 103 H 101 H Respiratory Rate 17 17 17 Blood Pressure Pulse Oximetry 97 96 96 Oxygen Delivery Method 02/06/25 06:30 02/06/25 06:51 02/06/25 06:51 Temperature Pulse Rate 104 H 106 H Respiratory Rate 15 13 Blood Pressure 160/87 H Pulse Oximetry 96 97 Oxygen Delivery Method 02/06/25 07:00 02/06/25 07:00 02/06/25 07:30 Temperature Pulse Rate 105 H Respiratory Rate 14 Blood Pressure 131/70 116/61 Pulse Oximetry 96 Oxygen Delivery Method 02/06/25 07:30 02/06/25 07:39 02/06/25 08:00 Temperature 98.7 F Pulse Rate 101 H 104 H 101 H Respiratory Rate 15 17 17 Blood Pressure 112/50 L Pulse Oximetry 95 95 Oxygen Delivery Method 02/06/25 08:00 02/06/25 08:30 02/06/25 08:30 Temperature Pulse Rate 100 H Respiratory Rate 19 Blood Pressure 105/65 117/71 Pulse Oximetry 94 Oxygen Delivery Method 02/06/25 09:00 02/06/25 09:00 02/06/25 09:00 Temperature Pulse Rate 99 H Respiratory Rate 15 Blood Pressure 114/64 Pulse Oximetry 94 Oxygen Delivery Method Mechanical Ventilation 02/06/25 09:30 02/06/25 09:30 02/06/25 10:00 Temperature Pulse Rate 98 H Respiratory Rate 15 Blood Pressure 115/60 132/67 Pulse Oximetry 95 Oxygen Delivery Method 02/06/25 10:00 02/06/25 10:00 Temperature 97.6 F Pulse Rate 97 H 96 H Respiratory Rate 17 16 Blood Pressure 128/60 Pulse Oximetry 94 100 Oxygen Delivery Method Oxygen Delivery Method Mechanical Ventilation Quality TeleICU VTE Deep Vein Thrombosis/Pulmonary Embolism Present on Admission: No Assessment & Plan Time-Based Coding :: [TOTAL MINUTES] spent with patient and on the chart (including review of chart, obtaining history, exam, reviewing outside data, placing orders, documenting exam and treatment plan, and counseling patient) on [DATE].
[2025-02-06 11:32] LABS: Hematocrit 29.6 % (41-53); Hemoglobin 9.9 g/dL (13.5-17.5)
[2025-02-06 11:55] LABS: Fibrinogen 375 mg/dL (238-498)
--- NOTE | 2025-02-06 12:01 | P.PN_ITS ---
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 He was also told 2 months ago in [place] [facility] that the left-sided carotid artery had numerous plaques and he needed to follow up in have surgery but he never did. Initial laboratory showed WBC 9.5, hemoglobin 12.1, hematocrit 35.3, platelets 265, INR 1, glucose 149, calcium 8.2, magnesium 1.8, troponin 0.0 12, potassium 5, creatinine 0.85, LFT normal, BNP 29, lipase 65, stool occult blood positive. Chest x-ray unremarkable. CT of the abdomen shows minimal inflammatory change near the gastric antrum/proximal duodenum. Small nonobstructive kidney stones without hydronephrosis. Surgery was consulted and recommended admission for GI bleed and colonoscopy/EGD in the morning. He was given Protonix 80 mg IV and several fluid boluses. 02/05: The patient underwent upper endoscopy today showing a nonbleeding duodenal ulcer without visible vessel, gastritis and hiatal hernia. Old blood was noted in the gastric lumen. No gross bleeding was noted. He reports his last drink was 2 days ago, single beer, states he does not drink regularly, and denies a history of alcohol withdrawal, prior endoscopy or ulcers, aspirin or NSAID use, or known underlying liver disease or cirrhosis. The patient experienced recurrent GI bleeding, with gross bright red hematemesis this afternoon. He was very agitated, dyspneic, hypotensive and tachycardic, with oxygen saturations falling a 74%. Anesthesia was called to intubate the patient. Initial attempts was notable for an esophageal intubation, and subsequent video fluoroscopy intubation was successful, with stabilization. Levophed infusion was started. He was transfused an additional 2 units of packed red blood cells. He also had gross melena during this episode. General surgery urgently returned to the scene and placed a left femoral central line. He was transferred to the operating room for operative management. His case was reviewed with the tele ICU doctor. 02/06: The patient remains intubated, sedated on midazolam and propofol infusions, with intermittent agitation associated with severe hypertension. He received a total of 10 units of packed red blood cells, with an additional 1 unit of packed red blood cell transfusion planned this morning, 3 units of fresh frozen plasma, 6 pack of platelets at 1 unit of cryoprecipitate. He appears comfortable, unresponsive and sedated. Attempts to contact his were successful per nursing but she is unable to come to the hospital for transportation reasons at this time. Team rounds were conducted with Dr. Fontenot of tele ICU, as well as case management, nursing and pharmacy services. Exam Vital Signs (past 8 hours): - 02/06/25 04:11 02/06/25 04:29 02/06/25 04:30 Temperature 98.7 F 98.7 F Pulse Rate 105 H 104 H 104 H Respiratory Rate 17 17 17 Blood Pressure 120/69 107/54 L Pulse Oximetry 99 Oxygen Delivery Method 02/06/25 05:00 02/06/25 05:00 02/06/25 05:30 Temperature Pulse Rate 102 H 103 H Respiratory Rate 17 17 Blood Pressure Pulse Oximetry 97 96 Oxygen Delivery Method Mechanical Ventilation 02/06/25 06:00 02/06/25 06:30 02/06/25 06:51 Temperature Pulse Rate 101 H 104 H 106 H Respiratory Rate 17 15 13 Blood Pressure Pulse Oximetry 96 96 97 Oxygen Delivery Method 02/06/25 06:51 02/06/25 07:00 02/06/25 07:00 Temperature Pulse Rate 105 H Respiratory Rate 14 Blood Pressure 160/87 H 131/70 Pulse Oximetry 96 Oxygen Delivery Method 02/06/25 07:30 02/06/25 07:30 02/06/25 07:39 Temperature 98.7 F Pulse Rate 101 H 104 H Respiratory Rate 15 17 Blood Pressure 116/61 112/50 L Pulse Oximetry 95 Oxygen Delivery Method 02/06/25 08:00 02/06/25 08:00 02/06/25 08:30 Temperature Pulse Rate 101 H 100 H Respiratory Rate 17 19 Blood Pressure 105/65 Pulse Oximetry 95 94 Oxygen Delivery Method 02/06/25 08:30 02/06/25 09:00 02/06/25 09:00 Temperature Pulse Rate 99 H Respiratory Rate 15 Blood Pressure 117/71 114/64 Pulse Oximetry 94 Oxygen Delivery Method 02/06/25 09:00 02/06/25 09:30 02/06/25 09:30 Temperature Pulse Rate 98 H Respiratory Rate 15 Blood Pressure 115/60 Pulse Oximetry 95 Oxygen Delivery Method Mechanical Ventilation 02/06/25 10:00 02/06/25 10:00 02/06/25 10:00 Temperature 97.6 F Pulse Rate 97 H 96 H Respiratory Rate 17 16 Blood Pressure 132/67 128/60 Pulse Oximetry 94 100 Oxygen Delivery Method 02/06/25 10:30 02/06/25 10:30 02/06/25 11:00 Temperature Pulse Rate 100 H 99 H Respiratory Rate 16 14 Blood Pressure 121/65 Pulse Oximetry 95 94 Oxygen Delivery Method 02/06/25 11:00 02/06/25 11:30 Temperature Pulse Rate 97 H Respiratory Rate 14 Blood Pressure 111/68 Pulse Oximetry 93 Oxygen Delivery Method Oxygen Delivery Method Mechanical Ventilation Narrative Exam Narrative: GENERAL: The patient is endotracheal intubated with orogastric tube in place, sedated on mechanical ventilation, on midazolam and phenylephrine infusions. He has a right IJ triple-lumen catheter in place, left radial arterial line, right hand peripheral IV, and [place] catheter in place. EYES: Pupils equal round and reactive. Extraocular motions intact. No scleral icterus. No injection or drainage. ENT: Mucous membranes pink and moist. NECK: Trachea midline. CARDIOVASCULAR: Regular rate and rhythm without murmurs, gallops, or rubs. RESPIRATORY: Decreased breath sounds bilateral bases, clear anteriorly. GASTROINTESTINAL: Abdomen soft, nondistended. EXTREMITIES: No clubbing, cyanosis, or edema. NEUROLOGIC: Alert, oriented, speech fluent, full upper and lower motor strength, no focal deficits evident. DERMATOLOGIC: No rashes or skin lesions. Objective ECG Impression: EKG 02/04/2025: Sinus tachycardia at 106 beats per minute. No ischemic changes Imaging Chest x-ray 02/04/2025: : Radiologist's impression: Low lung volumes, without an acute abnormality seen by plain film. Abdomen/pelvis CTA 02/04/2025: : Radiologist's impression: 1. No active extravasation. 2. Suspected minimal inflammatory change near the gastric antrum/proximal duodenum. 3. Small nonobstructing kidney stones. No hydronephrosis. Chest x-ray 02/05/2025:: Radiologist's impression: Endotracheal tube projects 4.3 centimeters above the alvarez. Left base patchy opacities. Chest x-ray 02/06/2025:: Radiologist's impression: Cardiomegaly and pulmonary vascular congestion. Small patchy infiltrate/atelectasis in bilateral lower lung mosley. No pleural effusion or pneumothorax. Labs 02/06/25 11:25 02/06/25 07:52 Labs: Laboratory Results - last 24 hr 02/04/25 02/05/25 02/05/25 18:19 17:23 20:44 WBC RBC Hgb 6.9 L* Hct 20.1 L* MCV MCH MCHC RDW Plt Count 169 Neut % (Auto) Lymph % (Auto) [place] % (Auto) Eos % (Auto) Baso % (Auto) Neut # (Auto) Lymph # (Auto) [place] # (Auto) Eos # (Auto) Baso # (Auto) PT 13.6 H INR 1.2 APTT 27 Fibrinogen 139 L ABG Sample Site Arterial line ABG pH 7.30 L ABG pCO2 41.2 ABG pO2 535 H* ABG HCO3 20 L ABG Total CO2 19 L ABG O2 Saturation 100 ABG Base Excess -5.8 L Vladimir Test N/a Sodium Potassium Chloride Carbon Dioxide BUN Creatinine Estimated GFR BUN/Creatinine Ratio Glucose POC Whole Bld Glucose Calcium Magnesium Total Bilirubin AST ALT Alkaline Phosphatase Troponin I Total Protein Albumin Globulin Albumin/Globulin Ratio Blood Type O Positive Antibody Screen Negative Crossmatch See Detail 02/05/25 02/05/25 02/06/25 22:22 22:35 04:46 WBC RBC Hgb 6.3 L* Hct 18.2 L* MCV MCH MCHC RDW Plt Count Neut % (Auto) Lymph % (Auto) [place] % (Auto) Eos % (Auto) Baso % (Auto) Neut # (Auto) Lymph # (Auto) [place] # (Auto) Eos # (Auto) Baso # (Auto) PT INR APTT Fibrinogen ABG Sample Site ABG pH 7.35 7.40 ABG pCO2 30.0 L 25.7 L ABG pO2 101 H 102 H ABG HCO3 16 L 16 L ABG Total CO2 16 L 15 L ABG O2 Saturation 98 98 ABG Base Excess -8.5 L -8.1 L Vladimir Test Sodium Potassium Chloride Carbon Dioxide BUN Creatinine Estimated GFR BUN/Creatinine Ratio Glucose POC Whole Bld Glucose Calcium Magnesium Total Bilirubin AST ALT Alkaline Phosphatase Troponin I Total Protein Albumin Globulin Albumin/Globulin Ratio Blood Type Antibody Screen Crossmatch 02/06/25 02/06/25 02/06/25 06:22 07:52 08:38 WBC 18.2 H D RBC 2.99 L Hgb 9.1 L Hct 27.3 L MCV 91.0 MCH 30.4 MCHC 33.4 RDW 14.2 Plt Count 145 L Neut % (Auto) 87.1 H D Lymph % (Auto) 8.3 L [place] % (Auto) 4.4 Eos % (Auto) 0.0 L Baso % (Auto) 0.2 Neut # (Auto) 27693 H Lymph # (Auto) 1500 [place] # (Auto) 800 Eos # (Auto) 0 Baso # (Auto) 0 PT INR APTT Fibrinogen ABG Sample Site ABG pH ABG pCO2 ABG pO2 ABG HCO3 ABG Total CO2 ABG O2 Saturation ABG Base Excess Vladimir Test Sodium 136 L Potassium 4.7 Chloride 112 H Carbon Dioxide 19 L BUN 36 H Creatinine 1.03 Estimated GFR > 60 BUN/Creatinine Ratio 35.0 H Glucose 107 H POC Whole Bld Glucose 104 H Calcium 7.8 L Magnesium 1.9 Total Bilirubin 0.5 AST 33 ALT 20 Alkaline Phosphatase 47 Troponin I 0.042 H Total Protein 4.5 L Albumin 2.3 L Globulin 2.2 Albumin/Globulin Ratio 1.0 Blood Type Antibody Screen Crossmatch 02/06/25 02/06/25 11:25 11:32 WBC RBC Hgb 9.9 L Hct 29.6 L MCV MCH MCHC RDW Plt Count Neut % (Auto) Lymph % (Auto) [place] % (Auto) Eos % (Auto) Baso % (Auto) Neut # (Auto) Lymph # (Auto) [place] # (Auto) Eos # (Auto) Baso # (Auto) PT INR APTT Fibrinogen 375 ABG Sample Site ABG pH ABG pCO2 ABG pO2 ABG HCO3 ABG Total CO2 ABG O2 Saturation ABG Base Excess Vladimir Test Sodium Potassium Chloride Carbon Dioxide BUN Creatinine Estimated GFR BUN/Creatinine Ratio Glucose POC Whole Bld Glucose 85 Calcium Magnesium Total Bilirubin AST ALT Alkaline Phosphatase Troponin I Total Protein Albumin Globulin Albumin/Globulin Ratio Blood Type Antibody Screen Crossmatch [facility] Social History household members: significant other Smoking Status: Current every day smoker alcohol intake: current Assessment & Plan Assessment & Plan narrative: Acute blood loss anemia requiring resuscitation with multiple blood transfusions. -continue intubation, sedation and airway protection given risk of recurrent bleeding. -likely extubation tomorrow if stable. -monitor serial hematocrits Acute GI bleeding due to duodenal ulcer by EGD 02/05/2025, status post cautery, injection and Endoclip x4. -Monitor serial hematocrits -continue Protonix 40 mg IV twice a day plus sucralfate 4 times daily. -Surgery consultation greatly appreciated. History of polysubstance and alcohol abuse. -reportedly currently inactive but with significant agitation and question of possible withdrawal. -monitor for evidence of withdrawal. -transition propofol to Precedex, continue midazolam, and fentanyl infusion DVT prophylaxis: SCDs, avoid anticoagulants Code status: Full code. Time-Based Coding :: 60 minutes of critical care time spent. Quality VTE Deep Vein Thrombosis/Pulmonary Embolism Present on Admission: No [facility] PROFEE Copy Operator Document charge(s): No
[2025-02-06] MEDS: FUROSEMIDE 40 MG/4 ML VIAL IV (13:31)
[2025-02-06] MEDS: dexmedeTOMIDine in 0.9 % NaCL 400 MCG/100 ML PLAST..BAG IV (16:00)
[2025-02-06 16:20] LABS: Hematocrit 32.2 % (41-53); Hemoglobin 10.8 g/dL (13.5-17.5)
--- NOTE | 2025-02-06 17:32 | PC.NURSE ---
Dayshift note: Pt tolerating vent settings FiO2 24 TV 480 RR14 PEEP 5 sats 92-94%, BP through art line and cuff pressures correlate see vitals trends, titrated sedation as tolerated by pt to maintain RASS of -3 moderate sedation, 1704 Propofol turned of due to episode of hypotension, Precedex, Verced and Fentanyl titrated as charted. Pt tolerating Q2H turns and routine oral care, restraints in place, fisher patent and draining, NG tube connected to LIS, contents no longer jade red, but now yellow gastric bile. Care on going
[2025-02-06] MEDS: NOREPINEPHRINE BITARTRATE/D5W 4 MG/250 ML PLAST..BAG 32.319 MG IV (18:25)
[2025-02-06] MEDS: MIDAZOLAM 50 MG in DEXTROSE 5 % IN WATER 40 ML 5.1 MG IV (20:49)
[2025-02-07] VITALS (104 sets, daily range): BP systolic 77–149; BP diastolic 48–87; PULSE 64–104; RESP 0–34; TEMP 36.7–37.2; O2SAT 89–100
[2025-02-07] MEDS: FUROSEMIDE 40 MG/4 ML VIAL IV (00:34)
[2025-02-07] MEDS: fentaNYL 1,000 MCG in DEXTROSE 5% IN WATER 230 ML 15.082 MCG IV (01:52)
[2025-02-07] MEDS: NOREPINEPHRINE BITARTRATE/D5W 4 MG/250 ML PLAST..BAG 32.319 MG IV (01:52)
[2025-02-07] MEDS: dexmedeTOMIDine in 0.9 % NaCL 400 MCG/100 ML PLAST..BAG 10.773 MCG IV (01:52)
[2025-02-07] MEDS: PIPERACILLIN/TAZO 3.375 GM in SODIUM CHLORIDE 0.9% 100 ML IV ×3 (02:05→17:54)
--- NOTE | 2025-02-07 06:30 | P.PN_ITS ---
Subjective Subjective Date Patient Seen: 02/07/25 Time Patient Seen: 06:30 Interval history: Patient is resting on ventilator postop day 2. EGD with control of duodenal ulcer bleeding with massive acute blood loss anemia. Patient is still being sedated on ventilator blood pressure please add no obvious source of bleeding. Morning laboratory are pending. Vitals temperature is 98.2? pulse 87 respirations 14 BP is 132/78 on Levophed. Heart regular rate and rhythm without murmurs. Lungs clear to auscultation with ventilator firing. Abdomen soft nondistended no masses or peritoneal signs hypoactive bowel sounds with NG clamped. Impression: Postop day 2. 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 We will continue with aggressive monitoring we will start diet slowly if unable to take any p.o. may need a course of hyperalimentation. No family members are available. Exam Vital Signs (past 8 hours): - 02/06/25 22:45 02/06/25 23:00 02/06/25 23:00 Pulse Rate 97 H 96 H 96 H Respiratory Rate 14 14 14 Blood Pressure 120/54 L 120/54 L Pulse Oximetry 95 95 95 Oxygen Delivery Method Fraction of Inspired Oxygen 02/06/25 23:15 02/06/25 23:30 02/06/25 23:30 Pulse Rate 95 H 94 H 94 H Respiratory Rate 14 14 14 Blood Pressure 119/54 L 118/53 L Pulse Oximetry 95 95 95 Oxygen Delivery Method Fraction of Inspired Oxygen 02/06/25 23:45 02/07/25 00:00 02/07/25 00:00 Pulse Rate 93 H 100 H 100 H Respiratory Rate 14 14 14 Blood Pressure 121/55 L 130/58 L Pulse Oximetry 95 94 94 Oxygen Delivery Method Fraction of Inspired Oxygen 02/07/25 00:00 02/07/25 00:15 02/07/25 00:23 Pulse Rate 93 H 93 H Respiratory Rate 14 14 Blood Pressure 107/67 104/48 L 121/55 L Pulse Oximetry 95 95 Oxygen Delivery Method Fraction of Inspired Oxygen 02/07/25 00:30 02/07/25 00:30 02/07/25 01:00 Pulse Rate 91 H 91 H 93 H Respiratory Rate 14 14 14 Blood Pressure 109/51 L 107/65 Pulse Oximetry 94 94 95 Oxygen Delivery Method Fraction of Inspired Oxygen 02/07/25 01:00 02/07/25 01:15 02/07/25 01:22 Pulse Rate 93 H 92 H Respiratory Rate 14 14 Blood Pressure 122/55 L Pulse Oximetry 95 95 Oxygen Delivery Method Mechanical Ventilation Fraction of Inspired Oxygen 02/07/25 01:22 02/07/25 01:30 02/07/25 01:45 Pulse Rate 92 H 92 H Respiratory Rate 14 14 Blood Pressure 107/65 121/55 L Pulse Oximetry 94 94 Oxygen Delivery Method Fraction of Inspired Oxygen 02/07/25 02:00 02/07/25 02:00 02/07/25 02:00 Pulse Rate 91 H 91 H Respiratory Rate 14 14 Blood Pressure 99/64 116/54 L Pulse Oximetry 95 95 Oxygen Delivery Method Fraction of Inspired Oxygen 02/07/25 02:15 02/07/25 02:30 02/07/25 02:30 Pulse Rate 91 H 90 90 Respiratory Rate 14 14 14 Blood Pressure 115/53 L 99/64 115/53 L Pulse Oximetry 94 94 94 Oxygen Delivery Method Fraction of Inspired Oxygen 02/07/25 02:45 02/07/25 03:00 02/07/25 03:00 Pulse Rate 90 90 90 Respiratory Rate 14 14 14 Blood Pressure 120/55 L 121/56 L Pulse Oximetry 94 94 94 Oxygen Delivery Method Fraction of Inspired Oxygen 02/07/25 03:15 02/07/25 03:30 02/07/25 03:45 Pulse Rate 90 90 90 Respiratory Rate 14 14 14 Blood Pressure 120/56 L 124/58 L Pulse Oximetry 95 95 95 Oxygen Delivery Method Fraction of Inspired Oxygen 02/07/25 04:00 02/07/25 04:00 02/07/25 04:00 Pulse Rate 90 90 Respiratory Rate 14 14 Blood Pressure 120/70 124/58 L Pulse Oximetry 95 95 Oxygen Delivery Method Fraction of Inspired Oxygen 02/07/25 04:15 02/07/25 04:30 02/07/25 04:30 Pulse Rate 89 90 90 Respiratory Rate 14 14 14 Blood Pressure 124/58 L 132/68 Pulse Oximetry 95 95 95 Oxygen Delivery Method Fraction of Inspired Oxygen 02/07/25 04:45 02/07/25 04:53 02/07/25 04:55 Pulse Rate 93 H 93 H 92 H Respiratory Rate 14 14 14 Blood Pressure 119/53 L 127/56 L 119/54 L Pulse Oximetry 94 95 94 Oxygen Delivery Method Fraction of Inspired Oxygen 02/07/25 05:00 02/07/25 05:00 02/07/25 05:30 Pulse Rate 88 87 Respiratory Rate 14 14 Blood Pressure 120/70 132/78 Pulse Oximetry 95 95 Oxygen Delivery Method Mechanical Ventilation Fraction of Inspired Oxygen Fraction of Inspired Oxygen 24 Oxygen Delivery Method Mechanical Ventilation Objective Labs 02/06/25 16:10 02/06/25 07:52 Labs: Laboratory Results - last 24 hr 02/04/25 02/04/25 02/06/25 18:19 18:52 07:52 WBC RBC Hgb Hct MCV MCH MCHC RDW Plt Count Neut % (Auto) Lymph % (Auto) [place] % (Auto) Eos % (Auto) Baso % (Auto) Neut # (Auto) Lymph # (Auto) [place] # (Auto) Eos # (Auto) Baso # (Auto) Fibrinogen Sodium 136 L Potassium 4.7 Chloride 112 H Carbon Dioxide 19 L BUN 36 H Creatinine 1.03 Estimated GFR > 60 BUN/Creatinine Ratio 35.0 H Glucose 107 H POC Whole Bld Glucose Calcium 7.8 L Magnesium 1.9 Total Bilirubin 0.5 AST 33 ALT 20 Alkaline Phosphatase 47 Troponin I 0.042 H Total Protein 4.5 L Albumin 2.3 L Globulin 2.2 Albumin/Globulin Ratio 1.0 Blood Type O Positive Cancelled Rho(D) Type Cancelled Antibody Screen Negative Crossmatch See Detail 02/06/25 02/06/25 02/06/25 08:38 11:25 11:32 WBC 18.2 H D RBC 2.99 L Hgb 9.1 L 9.9 L Hct 27.3 L 29.6 L MCV 91.0 MCH 30.4 MCHC 33.4 RDW 14.2 Plt Count 145 L Neut % (Auto) 87.1 H D Lymph % (Auto) 8.3 L [place] % (Auto) 4.4 Eos % (Auto) 0.0 L Baso % (Auto) 0.2 Neut # (Auto) 22050 H Lymph # (Auto) 1500 [place] # (Auto) 800 Eos # (Auto) 0 Baso # (Auto) 0 Fibrinogen 375 Sodium Potassium Chloride Carbon Dioxide BUN Creatinine Estimated GFR BUN/Creatinine Ratio Glucose POC Whole Bld Glucose 85 Calcium Magnesium Total Bilirubin AST ALT Alkaline Phosphatase Troponin I Total Protein Albumin Globulin Albumin/Globulin Ratio Blood Type Rho(D) Type Antibody Screen Crossmatch 02/06/25 02/06/25 02/07/25 16:10 18:04 00:10 WBC RBC Hgb 10.8 L Hct 32.2 L MCV MCH MCHC RDW Plt Count Neut % (Auto) Lymph % (Auto) [place] % (Auto) Eos % (Auto) Baso % (Auto) Neut # (Auto) Lymph # (Auto) [place] # (Auto) Eos # (Auto) Baso # (Auto) Fibrinogen Sodium Potassium Chloride Carbon Dioxide BUN Creatinine Estimated GFR BUN/Creatinine Ratio Glucose POC Whole Bld Glucose 109 H 133 H Calcium Magnesium Total Bilirubin AST ALT Alkaline Phosphatase Troponin I Total Protein Albumin Globulin Albumin/Globulin Ratio Blood Type Rho(D) Type Antibody Screen Crossmatch 02/07/25 06:08 WBC RBC Hgb Hct MCV MCH MCHC RDW Plt Count Neut % (Auto) Lymph % (Auto) [place] % (Auto) Eos % (Auto) Baso % (Auto) Neut # (Auto) Lymph # (Auto) [place] # (Auto) Eos # (Auto) Baso # (Auto) Fibrinogen Sodium Potassium Chloride Carbon Dioxide BUN Creatinine Estimated GFR BUN/Creatinine Ratio Glucose POC Whole Bld Glucose 158 H Calcium Magnesium Total Bilirubin AST ALT Alkaline Phosphatase Troponin I Total Protein Albumin Globulin Albumin/Globulin Ratio Blood Type Rho(D) Type Antibody Screen Crossmatch [facility] Social History household members: significant other Smoking Status: Current every day smoker alcohol intake: current Assessment & Plan Time-Based Coding :: [TOTAL MINUTES] spent with patient and on the chart (including review of chart, obtaining history, exam, reviewing outside data, placing orders, documenting exam and treatment plan, and counseling patient) on [DATE]. Quality VTE Deep Vein Thrombosis/Pulmonary Embolism Present on Admission: No [facility] PROFEE Basket Braider Document charge(s): Yes
[2025-02-07 06:44] LABS: Add Manual Diff / Slide Review NO; Hematocrit 28.1 % (41-53); Hemoglobin 9.6 g/dL (13.5-17.5); Lymphocytes Absolute Auto 1700 /uL (1100-4500); Mean Corpuscular HGB Conc 34.3 % (30-36); Mean Corpuscular Hemoglobin 30.9 PG (26-34); Mean Corpuscular Volume 90.3 fL (80-100); Platelet Count 170 X10^3/uL (150-400)
[2025-02-07] MEDS: fentaNYL 1,000 MCG in DEXTROSE 5% IN WATER 230 ML 10.773 MCG IV ×2 (06:47→21:01)
[2025-02-07] MEDS: MIDAZOLAM 50 MG in DEXTROSE 5 % IN WATER 40 ML 344.732 MG IV ×2 (06:47→07:44)
[2025-02-07 06:54] LABS: Alanine Aminotransferase 18 IU/L (<50); Albumin 2.6 g/dL (3.5-5.0); Albumin Globulin Ratio 1.1 (1.0-2.8); Alkaline Phosphatase 62 U/L (38-126); Blood Urea Nitrogen 24 mg/dL (9-20); Calcium 7.5 mg/dL (8.4-10.2); Carbon Dioxide 26 mmol/L (22-32); Chloride 106 mmol/L (98-107); Estimated Glomerular Filt Rate > 60 mL/min (>60); Globulin 2.4 g/dL (1.7-4.1); Glucose 156 mg/dL (70-99); HEMOLYSIS < 15 (0-50); Magnesium 1.7 mg/dL (1.6-2.3); Potassium 3.5 mmol/L (3.4-5.1); Sodium 135 mmol/L (137-145); Total Protein 5.0 g/dL (6.3-8.2)
--- NOTE | 2025-02-07 08:03 | PC.NURSE ---
Addendum entered by Karlie Crandall R.N. 02/07/25 18:26: During SAT and SBT, pt BP decompensated, requiring norepinephrine. Providers Dr. Welch and Dr. Mcmillan notified. New orders received. Midazolam restarted, previous order incorrect and corrected, pharmacist Law Copeland printed new label and inspected current bag to reflect current order. Pt pale and diaphoretic, restless in bed. New orders received. Critical labs reported to providers Dr. Welch and Dr. Mcmillan. See MAR for titration of sedation and norepinehrine. Pt pending transfer to higher level of care, Pia updated by provider dr. Welch and this RN. Care ongoing. Addendum entered by Karlie Crandall R.N. 02/07/25 10:24: 09:[address] Maria Del Rosario Mcmillan, all sedation stopped to assess neurological status of patient. Norepinephrine also titrated down to stopped per protocol (See MAR). 10:10 pt able to open eyes but not maintain eye contact, moving BLE but unable to move BUE at this time. Unable to follow commands. Care ongoing. Addendum entered by Karlie Crandall R.N. 02/07/25 08:25: Midazolam ordered as mg/kg/hr by eICU Dr. Maria Del Rosario Mcmillan; per protocol this weight-based dosing can only be utilized by anesthesia. Pharmacy notified. Provider called, awaiting call back and clarification. Care ongoing. Original Note: Midazolam documentation incorrect as charted at 07:58 identified. Current dose being administered/ordered per protocol 3mg/hr, not 3mg/kg/hr. Pharmacy notified. Pt receiving 3mg/hr. Correction pending. Care ongoing.
--- NOTE | 2025-02-07 08:23 | CM.DPNOTE ---
DCP note PLASTERER FOREMAN reviewed EMR per RN report, will attempt extubation today. per previous CM notes, Upon discharge, patient plans to take an uber vs taxi back to his RV. No barriers identified at this time to patient's safe discharge back to RV. Social work team will plan to follow clinical course closely in case any DC needs or concerns arise. RIRI Payan
[2025-02-07] MEDS: PANTOPRAZOLE 40 MG VIAL IV (09:37)
--- NOTE | 2025-02-07 09:39 | P.TELICUPN_ITS ---
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 Coags within normal but Fibrinogen, pending CXR post incubation. EGD showed bleeding DU, s/p Epi injections, electro cautary and endo clips x4. in OR Pt received 4 PRBC, 3 FFP & 1 platelets. Today: Weaning off sedation, net -4 L with diuresis off pressor, HB & plat stable Acute UGI bleed Acute blood loss anemia Acute metbolic encephalopathy/ Alcohol withdrawal Aspiration Acute hypoxic resp failure 2/2 above Plan to wean off sedation and do SBT & extubated, precedex prn IV PPI Trend CBC & coags daily Zosyn empirically for aspiration PNA SCD for vte ppx Durham cath I/O, can be removed after extubation Plan discussed with Staff CCT 30 min Current Medications Current Medications Medications: Home Medications No Known Home Medications 02/05/25 [History Confirmed 02/05/25] Visit Medications (administered) Generic Name Dose Route Start Last Admin Trade Name Freq PRN Reason Stop Dose Admin Furosemide 40 mg 02/06/25 13:10 02/07/25 00:34 Furosemide 40 Mg/4 Ml Vial IV 40 mg Q12HR MICHAEL Administration Sodium Chloride 1,000 mls @ 125 mls/hr 02/04/25 20:00 02/05/25 20:40 Normal Saline 0.9% IV Infused CONT MICHAEL Infusion Propofol 1,000 mg in 100 mls @ 2.585 mls/hr 02/05/25 20:15 02/07/25 09:10 Diprivan IV 0 mcg/kg/min TITRATE MICHAEL 0 mls/hr Protocol Titration 5 MCG/KG/MIN Piperacillin Sod/Tazobactam 100 mls @ 25 mls/hr 02/06/25 10:00 02/07/25 09:30 Sod 3.375 gm/ Sodium Chloride IV 25 mls/hr Q8H MICHAEL Administration Fentanyl 1,000 mcg/ Dextrose 250 mls @ 15.082 mls/hr 02/06/25 08:15 02/07/25 06:47 IV 0.5 mcg/kg/hr TITRATE MICHAEL 10.773 mls/hr Protocol Administration 0.7 MCG/KG/HR dexmedeTOMIDine in 0.9 % NaCL 400 mcg in 100 mls @ 4.309 mls/hr 02/06/25 16:00 02/07/25 06:30 Precedex IV 0.6 mcg/kg/hr TITRATE MICHAEL 12.927 mls/hr Protocol Titration 0.2 MCG/KG/HR NOREPINEPHRINE BITARTRATE/D5W 4 mg in 250 mls @ 32.319 mls/hr 02/06/25 18:16 02/07/25 09:28 Levophed IV 0.025 mcg/kg/min TITRATE MICHAEL 8.08 mls/hr Protocol Titration 0.1 MCG/KG/MIN Morphine Sulfate 3 mg 02/04/25 19:49 02/06/25 01:46 Morphine 4 Mg/Ml Inj IV 3 mg Q2HR PRN Administration Pain, Severe (7-10) Pantoprazole Sodium 40 mg 02/05/25 13:02 02/07/25 09:37 Pantoprazole 40 Mg Vial IV 40 mg BID MICHAEL Administration Objective Ventilator Parameters: Ventilator Settings FiO2 24 RT Vent Frequency 14 Ventilator Tidal Volume 480 Exhaled Vt/kg IBW 7 Positive End Expiratory 5 Pressure Inspiratory Phase Time 0.95 Patient Position HOB >= 30 degrees Labs 02/07/25 06:20 02/07/25 06:20 Labs: Laboratory Results - last 24 hr 02/04/25 02/04/25 02/06/25 18:19 18:52 11:25 WBC RBC Hgb 9.9 L Hct 29.6 L MCV MCH MCHC RDW Plt Count Neut % (Auto) Lymph % (Auto) [place] % (Auto) Eos % (Auto) Baso % (Auto) Neut # (Auto) Lymph # (Auto) [place] # (Auto) Eos # (Auto) Baso # (Auto) Fibrinogen 375 Sodium Potassium Chloride Carbon Dioxide BUN Creatinine Estimated GFR BUN/Creatinine Ratio Glucose POC Whole Bld Glucose Calcium Magnesium Total Bilirubin AST ALT Alkaline Phosphatase Total Protein Albumin Globulin Albumin/Globulin Ratio Blood Type Cancelled Rho(D) Type Cancelled Crossmatch See Detail 02/06/25 02/06/25 02/06/25 11:32 16:10 18:04 WBC RBC Hgb 10.8 L Hct 32.2 L MCV MCH MCHC RDW Plt Count Neut % (Auto) Lymph % (Auto) [place] % (Auto) Eos % (Auto) Baso % (Auto) Neut # (Auto) Lymph # (Auto) [place] # (Auto) Eos # (Auto) Baso # (Auto) Fibrinogen Sodium Potassium Chloride Carbon Dioxide BUN Creatinine Estimated GFR BUN/Creatinine Ratio Glucose POC Whole Bld Glucose 85 109 H Calcium Magnesium Total Bilirubin AST ALT Alkaline Phosphatase Total Protein Albumin Globulin Albumin/Globulin Ratio Blood Type Rho(D) Type Crossmatch 02/07/25 02/07/25 02/07/25 00:10 06:08 06:20 WBC 17.6 H RBC 3.11 L Hgb 9.6 L Hct 28.1 L MCV 90.3 MCH 30.9 MCHC 34.3 RDW 14.3 Plt Count 170 Neut % (Auto) 82.2 H Lymph % (Auto) 9.7 L [place] % (Auto) 6.4 Eos % (Auto) 1.4 L Baso % (Auto) 0.3 Neut # (Auto) 02214 H Lymph # (Auto) 1700 [place] # (Auto) 1100 H Eos # (Auto) 200 Baso # (Auto) 100 Fibrinogen Sodium 135 L Potassium 3.5 D Chloride 106 Carbon Dioxide 26 BUN 24 H Creatinine 1.14 Estimated GFR > 60 BUN/Creatinine Ratio 21.1 Glucose 156 H POC Whole Bld Glucose 133 H 158 H Calcium 7.5 L Magnesium 1.7 Total Bilirubin 0.7 AST 24 ALT 18 Alkaline Phosphatase 62 Total Protein 5.0 L Albumin 2.6 L Globulin 2.4 Albumin/Globulin Ratio 1.1 Blood Type Rho(D) Type Crossmatch Exam Vital Signs (past 8 hours): - 02/07/25 01:45 02/07/25 02:00 02/07/25 02:00 Pulse Rate 92 H 91 H Respiratory Rate 14 14 Blood Pressure 121/55 L 99/64 Pulse Oximetry 94 95 Oxygen Delivery Method Fraction of Inspired Oxygen 02/07/25 02:00 02/07/25 02:15 02/07/25 02:30 Pulse Rate 91 H 91 H 90 Respiratory Rate 14 14 14 Blood Pressure 116/54 L 115/53 L 99/64 Pulse Oximetry 95 94 94 Oxygen Delivery Method Fraction of Inspired Oxygen 02/07/25 02:30 02/07/25 02:45 02/07/25 03:00 Pulse Rate 90 90 90 Respiratory Rate 14 14 14 Blood Pressure 115/53 L 120/55 L Pulse Oximetry 94 94 94 Oxygen Delivery Method Fraction of Inspired Oxygen 02/07/25 03:00 02/07/25 03:15 02/07/25 03:30 Pulse Rate 90 90 90 Respiratory Rate 14 14 14 Blood Pressure 121/56 L 120/56 L Pulse Oximetry 94 95 95 Oxygen Delivery Method Fraction of Inspired Oxygen 02/07/25 03:45 02/07/25 04:00 02/07/25 04:00 Pulse Rate 90 90 Respiratory Rate 14 14 Blood Pressure 124/58 L 120/70 Pulse Oximetry 95 95 Oxygen Delivery Method Fraction of Inspired Oxygen 02/07/25 04:00 02/07/25 04:15 02/07/25 04:30 Pulse Rate 90 89 90 Respiratory Rate 14 14 14 Blood Pressure 124/58 L 124/58 L 132/68 Pulse Oximetry 95 95 95 Oxygen Delivery Method Fraction of Inspired Oxygen 02/07/25 04:30 02/07/25 04:45 02/07/25 04:53 Pulse Rate 90 93 H 93 H Respiratory Rate 14 14 14 Blood Pressure 119/53 L 127/56 L Pulse Oximetry 95 94 95 Oxygen Delivery Method Fraction of Inspired Oxygen 02/07/25 04:55 02/07/25 05:00 02/07/25 05:00 Pulse Rate 92 H 88 Respiratory Rate 14 14 Blood Pressure 119/54 L 120/70 Pulse Oximetry 94 95 Oxygen Delivery Method Mechanical Ventilation Fraction of Inspired Oxygen 02/07/25 05:00 02/07/25 05:15 02/07/25 05:30 Pulse Rate 88 87 87 Respiratory Rate 14 14 14 Blood Pressure 92/67 119/68 116/67 Pulse Oximetry 95 95 95 Oxygen Delivery Method Fraction of Inspired Oxygen 02/07/25 05:30 02/07/25 05:45 02/07/25 06:00 Pulse Rate 87 87 85 Respiratory Rate 14 14 14 Blood Pressure 132/78 118/69 118/69 Pulse Oximetry 95 95 95 Oxygen Delivery Method Fraction of Inspired Oxygen 24 24 02/07/25 06:00 02/07/25 06:00 02/07/25 06:15 Pulse Rate 85 85 Respiratory Rate 14 14 Blood Pressure 132/78 116/68 Pulse Oximetry 95 95 Oxygen Delivery Method Fraction of Inspired Oxygen 24 02/07/25 06:30 02/07/25 07:00 02/07/25 07:30 Pulse Rate 82 84 83 Respiratory Rate 14 14 14 Blood Pressure Pulse Oximetry 95 95 95 Oxygen Delivery Method Fraction of Inspired Oxygen 02/07/25 07:36 02/07/25 07:36 02/07/25 08:00 Pulse Rate 80 81 Respiratory Rate 14 14 Blood Pressure 98/61 Pulse Oximetry 96 95 Oxygen Delivery Method Fraction of Inspired Oxygen 02/07/25 08:00 02/07/25 08:30 02/07/25 08:41 Pulse Rate 80 73 Respiratory Rate 14 14 Blood Pressure 125/75 Pulse Oximetry 95 95 Oxygen Delivery Method Fraction of Inspired Oxygen 02/07/25 08:41 02/07/25 09:00 Pulse Rate 85 Respiratory Rate 14 Blood Pressure 149/87 H Pulse Oximetry 95 Oxygen Delivery Method Fraction of Inspired Oxygen Fraction of Inspired Oxygen 24 Oxygen Delivery Method Mechanical Ventilation Quality TeleICU VTE Deep Vein Thrombosis/Pulmonary Embolism Present on Admission: No Assessment & Plan Time-Based Coding :: [TOTAL MINUTES] spent with patient and on the chart (including review of chart, obtaining history, exam, reviewing outside data, placing orders, documenting exam and treatment plan, and counseling patient) on [DATE].
--- NOTE | 2025-02-07 11:41 | DI.RAD.S_ITS ---
PROCEDURE: XR CHEST 1V INDICATIONS: intubated TECHNIQUE: One view of the chest was acquired. COMPARISON: [facility], CR, XR CHEST 1V, 02/04/2025, 16:23. [facility], CR, XR CHEST 1V, 02/05/2025, 19:20. [facility], CR, XR CHEST 1V, 02/06/2025, 6:27. FINDINGS: Surgical changes and devices: An endotracheal tube is seen, with the tip 4 cm above the alvarez. The tip of the gastric tube can be seen overlying the mid stomach, with the side hole below the level of the diaphragm. There is a stable right-sided central line. Cholecystectomy clips are seen. Lungs and pleura: An incomplete inspiratory result is noted, causing a crowded appearance to the lung markings. No focal infiltrates are seen. On this supine study, no large pneumothorax or significant pleural effusions are seen. Mild generalized interstitial prominence can be seen. Mediastinum: Mediastinal contours appear normal. Heart size is normal. Bones and chest wall: No suspicious bony lesions. Age-appropriate bony degenerative changes are seen. Overlying soft tissues appear unremarkable. IMPRESSION: Stable tubes and lines. Low lung volumes, with mild interstitial prominence. Please correlate with mild pulmonary edema. Dictated by: Logan Russo M.D. on 02/07/2025 at 11:38 Approved by: Logan Russo M.D. on 02/07/2025 at 11:39
--- NOTE | 2025-02-07 11:52 | P.PN_ITS ---
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 Initial laboratory showed WBC 9.5, hemoglobin 12.1, hematocrit 35.3, platelets 265, INR 1, glucose 149, calcium 8.2, magnesium 1.8, troponin 0.0 12, potassium 5, creatinine 0.85, LFT normal, BNP 29, lipase 65, stool occult blood positive. Chest x-ray unremarkable. CT of the abdomen shows minimal inflammatory change near the gastric antrum/proximal duodenum. Small nonobstructive kidney stones without hydronephrosis. Surgery was consulted and recommended admission for GI bleed and colonoscopy/EGD in the morning. He was given Protonix 80 mg IV and several fluid boluses. 02/05: The patient underwent upper endoscopy today showing a nonbleeding duodenal ulcer without visible vessel, gastritis and hiatal hernia. Old blood was noted in the gastric lumen. No gross bleeding was noted. He reports his last drink was 2 days ago, single beer, states he does not drink regularly, and denies a history of alcohol withdrawal, prior endoscopy or ulcers, aspirin or NSAID use, or known underlying liver disease or cirrhosis. The patient experienced recurrent GI bleeding, with gross bright red hematemesis this afternoon. He was very agitated, dyspneic, hypotensive and tachycardic, with oxygen saturations falling a 74%. Anesthesia was called to intubate the patient. Initial attempts was notable for an esophageal intubation, and subsequent video fluoroscopy intubation was successful, with stabilization. Levophed infusion was started. He was transfused an additional 2 units of packed red blood cells. He also had gross melena during this episode. General surgery urgently returned to the scene and placed a left femoral central line. He was transferred to the operating room for operative management. His case was reviewed with the tele ICU doctor. 02/06: The patient remains intubated, sedated on midazolam and propofol infusions, with intermittent agitation associated with severe hypertension. He received a total of 10 units of packed red blood cells, with an additional 1 unit of packed red blood cell transfusion planned this morning, 3 units of fresh frozen plasma, 6 pack of platelets at 1 unit of cryoprecipitate. He appears comfortable, unresponsive and sedated. Attempts to contact his were successful per nursing but she is unable to come to the hospital for transportation reasons at this time. Team rounds were conducted with Dr. Fontenot of tele ICU, as well as case management, nursing and pharmacy services. 02/07: The patient remains intubated, sedated on mechanical ventilation. 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 No further bleeding reported. Transient hypotension possibly due to arterial line technical issues. He was placed on Levophed infusion when readings were in the 70s, but these are questionable. Pending extubation when clearly hemodynamically stable readings noted off pressors. Exam Vital Signs (past 8 hours): - 02/07/25 04:00 02/07/25 04:00 02/07/25 04:00 Temperature Pulse Rate 90 90 Respiratory Rate 14 14 Blood Pressure 120/70 124/58 L Pulse Oximetry 95 95 Oxygen Delivery Method Fraction of Inspired Oxygen 02/07/25 04:15 02/07/25 04:30 02/07/25 04:30 Temperature Pulse Rate 89 90 90 Respiratory Rate 14 14 14 Blood Pressure 124/58 L 132/68 Pulse Oximetry 95 95 95 Oxygen Delivery Method Fraction of Inspired Oxygen 02/07/25 04:45 02/07/25 04:53 02/07/25 04:55 Temperature Pulse Rate 93 H 93 H 92 H Respiratory Rate 14 14 14 Blood Pressure 119/53 L 127/56 L 119/54 L Pulse Oximetry 94 95 94 Oxygen Delivery Method Fraction of Inspired Oxygen 02/07/25 05:00 02/07/25 05:00 02/07/25 05:00 Temperature Pulse Rate 88 88 Respiratory Rate 14 14 Blood Pressure 120/70 92/67 Pulse Oximetry 95 95 Oxygen Delivery Method Mechanical Ventilation Fraction of Inspired Oxygen 02/07/25 05:15 02/07/25 05:30 02/07/25 05:30 Temperature Pulse Rate 87 87 87 Respiratory Rate 14 14 14 Blood Pressure 119/68 116/67 132/78 Pulse Oximetry 95 95 95 Oxygen Delivery Method Fraction of Inspired Oxygen 24 24 02/07/25 05:45 02/07/25 06:00 02/07/25 06:00 Temperature Pulse Rate 87 85 85 Respiratory Rate 14 14 14 Blood Pressure 118/69 118/69 Pulse Oximetry 95 95 95 Oxygen Delivery Method Fraction of Inspired Oxygen 24 24 02/07/25 06:00 02/07/25 06:15 02/07/25 06:30 Temperature Pulse Rate 85 82 Respiratory Rate 14 14 Blood Pressure 132/78 116/68 Pulse Oximetry 95 95 Oxygen Delivery Method Fraction of Inspired Oxygen 24 02/07/25 07:00 02/07/25 07:30 02/07/25 07:36 Temperature Pulse Rate 84 83 80 Respiratory Rate 14 14 14 Blood Pressure Pulse Oximetry 95 95 96 Oxygen Delivery Method Fraction of Inspired Oxygen 02/07/25 07:36 02/07/25 08:00 02/07/25 08:00 Temperature Pulse Rate 81 Respiratory Rate 14 Blood Pressure 98/61 125/75 Pulse Oximetry 95 Oxygen Delivery Method Fraction of Inspired Oxygen 02/07/25 08:00 02/07/25 08:30 02/07/25 08:41 Temperature 98.0 F Pulse Rate 80 73 Respiratory Rate 14 14 Blood Pressure Pulse Oximetry 95 95 Oxygen Delivery Method Fraction of Inspired Oxygen 02/07/25 08:41 02/07/25 09:00 02/07/25 09:00 Temperature Pulse Rate 85 Respiratory Rate 14 Blood Pressure 149/87 H Pulse Oximetry 95 Oxygen Delivery Method Mechanical Ventilation Fraction of Inspired Oxygen 02/07/25 09:30 02/07/25 10:00 02/07/25 10:00 Temperature Pulse Rate 95 H 88 Respiratory Rate 14 16 Blood Pressure 112/71 Pulse Oximetry 95 95 Oxygen Delivery Method Fraction of Inspired Oxygen 02/07/25 10:30 02/07/25 10:51 02/07/25 11:00 Temperature Pulse Rate 77 84 Respiratory Rate 16 10 L Blood Pressure Pulse Oximetry 97 96 97 Oxygen Delivery Method Fraction of Inspired Oxygen 02/07/25 11:13 02/07/25 11:13 Temperature Pulse Rate 84 Respiratory Rate 23 Blood Pressure 83/56 L Pulse Oximetry 95 Oxygen Delivery Method Fraction of Inspired Oxygen Fraction of Inspired Oxygen 24 Oxygen Delivery Method Mechanical Ventilation Narrative Exam Narrative: GENERAL: The patient is endotracheal intubated with orogastric tube in place, sedated on mechanical ventilation, on midazolam and phenylephrine infusions. He has a right IJ triple-lumen catheter in place, left radial arterial line, right hand peripheral IV, and [place] catheter in place. EYES: Pupils equal round and reactive. No injection or drainage. ENT: Mucous membranes pink and moist. NECK: Trachea midline. CARDIOVASCULAR: Regular rate and rhythm without murmurs, gallops, or rubs. RESPIRATORY: Decreased breath sounds bilateral bases, clear anteriorly. GASTROINTESTINAL: Abdomen soft, nondistended. EXTREMITIES: No clubbing, cyanosis, or edema. NEUROLOGIC: Sedated, intubate though responds appropriately to commands with nodding and hand weigher and crusher squeezing, globally weak, no focal deficits evident. DERMATOLOGIC: No rashes or skin lesions. Objective ECG Impression: EKG 02/04/2025: Sinus tachycardia at 106 beats per minute. No ischemic changes Imaging Chest x-ray 02/04/2025: : Radiologist's impression: Low lung volumes, without an acute abnormality seen by plain film. Abdomen/pelvis CTA 02/04/2025: : Radiologist's impression: 1. No active extravasation. 2. Suspected minimal inflammatory change near the gastric antrum/proximal duodenum. 3. Small nonobstructing kidney stones. No hydronephrosis. Chest x-ray 02/05/2025:: Radiologist's impression: Endotracheal tube projects 4.3 centimeters above the alvarez. Left base patchy opacities. Chest x-ray 02/06/2025:: Radiologist's impression: Cardiomegaly and pulmonary vascular congestion. Small patchy infiltrate/atelectasis in bilateral lower lung mosley. No pleural effusion or pneumothorax. Labs 02/07/25 06:20 02/07/25 06:20 Labs: Laboratory Results - last 24 hr 02/04/25 02/06/25 02/06/25 18:52 11:25 16:10 WBC RBC Hgb 10.8 L Hct 32.2 L MCV MCH MCHC RDW Plt Count Neut % (Auto) Lymph % (Auto) [place] % (Auto) Eos % (Auto) Baso % (Auto) Neut # (Auto) Lymph # (Auto) [place] # (Auto) Eos # (Auto) Baso # (Auto) Fibrinogen 375 Sodium Potassium Chloride Carbon Dioxide BUN Creatinine Estimated GFR BUN/Creatinine Ratio Glucose POC Whole Bld Glucose Calcium Magnesium Total Bilirubin AST ALT Alkaline Phosphatase Total Protein Albumin Globulin Albumin/Globulin Ratio Blood Type Cancelled Rho(D) Type Cancelled 02/06/25 02/07/25 02/07/25 18:04 00:10 06:08 WBC RBC Hgb Hct MCV MCH MCHC RDW Plt Count Neut % (Auto) Lymph % (Auto) [place] % (Auto) Eos % (Auto) Baso % (Auto) Neut # (Auto) Lymph # (Auto) [place] # (Auto) Eos # (Auto) Baso # (Auto) Fibrinogen Sodium Potassium Chloride Carbon Dioxide BUN Creatinine Estimated GFR BUN/Creatinine Ratio Glucose POC Whole Bld Glucose 109 H 133 H 158 H Calcium Magnesium Total Bilirubin AST ALT Alkaline Phosphatase Total Protein Albumin Globulin Albumin/Globulin Ratio Blood Type Rho(D) Type 02/07/25 06:20 WBC 17.6 H RBC 3.11 L Hgb 9.6 L Hct 28.1 L MCV 90.3 MCH 30.9 MCHC 34.3 RDW 14.3 Plt Count 170 Neut % (Auto) 82.2 H Lymph % (Auto) 9.7 L [place] % (Auto) 6.4 Eos % (Auto) 1.4 L Baso % (Auto) 0.3 Neut # (Auto) 35349 H Lymph # (Auto) 1700 [place] # (Auto) 1100 H Eos # (Auto) 200 Baso # (Auto) 100 Fibrinogen Sodium 135 L Potassium 3.5 D Chloride 106 Carbon Dioxide 26 BUN 24 H Creatinine 1.14 Estimated GFR > 60 BUN/Creatinine Ratio 21.1 Glucose 156 H POC Whole Bld Glucose Calcium 7.5 L Magnesium 1.7 Total Bilirubin 0.7 AST 24 ALT 18 Alkaline Phosphatase 62 Total Protein 5.0 L Albumin 2.6 L Globulin 2.4 Albumin/Globulin Ratio 1.1 Blood Type Rho(D) Type [facility] Social History household members: significant other Smoking Status: Current every day smoker alcohol intake: current Assessment & Plan Assessment & Plan narrative: Acute blood loss anemia requiring resuscitation with multiple blood transfusions. -continue intubation, sedation and airway protection given risk of recurrent bleeding. -plan extubation today if hemodynamically stable. -monitor serial hematocrits Acute GI bleeding due to duodenal ulcer by EGD 02/05/2025, status post cautery, injection and Endoclip x4. -Monitor serial hematocrits -continue Protonix 40 mg IV twice a day plus sucralfate 4 times daily. -Surgery consultation greatly appreciated. History of polysubstance and alcohol abuse. -reportedly currently inactive but with significant agitation and question of possible withdrawal. -monitor for evidence of withdrawal. -stopped propofol, midazolam and fentanyl infusions, continue Precedex DVT prophylaxis: SCDs, avoid anticoagulants Code status: Full code. 45 minutes of critical care time spent Time-Based Coding :: Quality VTE Deep Vein Thrombosis/Pulmonary Embolism Present on Admission: No
[2025-02-07] MEDS: MAGNESIUM SULFATE 2 GM/50 ML PIGGYBACK IV (12:15)
[2025-02-07] MEDS: POTASSIUM CHLORIDE IN WATER 10 MEQ/100 ML PIGGYBACK 100 MEQ IV ×2 (12:16→13:28)
[2025-02-07] MEDS: MORPHINE 4 MG/ML INJ 3 MG IV (12:32)
[2025-02-07 13:05] LABS: Add Manual Diff / Slide Review NO; Hematocrit 25.8 % (41-53); Hemoglobin 8.8 g/dL (13.5-17.5); Lymphocytes Absolute Auto 600 /uL (1100-4500); Mean Corpuscular HGB Conc 34.1 % (30-36); Mean Corpuscular Hemoglobin 31.1 PG (26-34); Mean Corpuscular Volume 91.1 fL (80-100); Platelet Count 156 X10^3/uL (150-400)
[2025-02-07 13:16] LABS: Alanine Aminotransferase 18 IU/L (<50); Albumin 2.5 g/dL (3.5-5.0); Albumin Globulin Ratio 1.0 (1.0-2.8); Alkaline Phosphatase 67 U/L (38-126); Blood Urea Nitrogen 22 mg/dL (9-20); Calcium 7.3 mg/dL (8.4-10.2); Carbon Dioxide 25 mmol/L (22-32); Chloride 107 mmol/L (98-107); Estimated Glomerular Filt Rate > 60 mL/min (>60); Globulin 2.4 g/dL (1.7-4.1); Glucose 132 mg/dL (70-99); HEMOLYSIS < 15 (0-50); Potassium 4.0 mmol/L (3.4-5.1); Sodium 136 mmol/L (137-145); Total Protein 4.9 g/dL (6.3-8.2)
[2025-02-07] MEDS: DEXTROSE 5%-0.45% NS 1,000 ML 75 ML IV (13:30)
[2025-02-07] MEDS: dexmedeTOMIDine in 0.9 % NaCL 400 MCG/100 ML PLAST..BAG IV (13:31)
[2025-02-07] MEDS: SODIUM CHLORIDE 0.9% 500 ML 1000 ML IV (13:33)
[2025-02-07] MEDS: NOREPINEPHRINE BITARTRATE/D5W 4 MG/250 ML PLAST..BAG 8.08 MG IV (13:39)
[2025-02-07 13:47] LABS: Troponin I 1.790 ng/mL (0.01-0.034)
--- NOTE | 2025-02-07 14:02 | EKG_ITS ---
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
[2025-02-07] MEDS: MIDAZOLAM 50 MG in DEXTROSE 5 % IN WATER 40 ML IV ×2 (15:35→20:24)
[2025-02-07 15:59] LABS: Troponin I 9.640 ng/mL (0.01-0.034)
[2025-02-07 17:55] LABS: Troponin I 15.500 ng/mL (0.01-0.034)
--- NOTE | 2025-02-07 18:26 | EKG_ITS ---
[address] [address] Test Date: 2025-02-07 Pat Name: Jhon Matos Department: Room: 231 Gender: Male Complaint Inspector: MAGGY GALINDO : 1960 Requested By: Order Number: [id number] Reading MD: Vladimir Dash Measurements Intervals [place] Rate: 91 P: 72 GA: 152 QRS: 0 QRSD: 100 T: 95 QT: 358 QTc: 440 Interpretive Statements Normal sinus rhythm Nonspecific T wave abnormality Electronically Signed On 02-13-2025 7:28:09 PDT by Vladimir Dash
--- NOTE | 2025-02-07 18:45 | P.DS_ITS ---
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 Initial laboratory showed WBC 9.5, hemoglobin 12.1, hematocrit 35.3, platelets 265, INR 1, glucose 149, calcium 8.2, magnesium 1.8, troponin 0.0 12, potassium 5, creatinine 0.85, LFT normal, BNP 29, lipase 65, stool occult blood positive. Chest x-ray unremarkable. CT of the abdomen shows minimal inflammatory change near the gastric antrum/proximal duodenum. Small nonobstructive kidney stones without hydronephrosis. Surgery was consulted and recommended admission for GI bleed and colonoscopy/EGD in the morning. He was given Protonix 80 mg IV and several fluid boluses. Discharge Providers Provider Date of admission: 02/04/25 19:51 Discharge Date: 02/07/25 Consults: 02/06/25 09:42 Consult to Hospitalist Service Routine Comment: Consulting Provider: Dillon Welch V Reason for consultation: Vented, sedated pt needs management Has provider been notified: Yes Discharge provider: Dillon Welch MD Summary Hospital Course Discharge Diagnosis: 1. Acute blood loss anemia requiring resuscitation with multiple blood transfusions. 2. Acute GI bleeding due to duodenal ulcer by EGD 02/05/2025, status post cautery, injection and Endoclip x4. 3. Acute non ST segment elevation myocardial infarction. 4. History of polysubstance and alcohol abuse. Hospital Course: 02/05: The patient underwent upper endoscopy today showing a nonbleeding duodenal ulcer without visible vessel, gastritis and hiatal hernia. Old blood was noted in the gastric lumen. No gross bleeding was noted. He reports his last drink was 2 days ago, single beer, states he does not drink regularly, and denies a history of alcohol withdrawal, prior endoscopy or ulcers, aspirin or NSAID use, or known underlying liver disease or cirrhosis. The patient experienced recurrent GI bleeding, with gross bright red hematemesis this afternoon. He was very agitated, dyspneic, hypotensive and tachycardic, with oxygen saturations falling a 74%. Anesthesia was called to intubate the patient. Initial attempts was notable for an esophageal intubation, and subsequent video fluoroscopy intubation was successful, with stabilization. Levophed infusion was started. He was transfused an additional 2 units of packed red blood cells. He also had gross melena during this episode. General surgery urgently returned to the scene and placed a left femoral central line. He was transferred to the operating room for operative management. His case was reviewed with the [facility] ICU doctor. 02/06: The patient remains intubated, sedated on midazolam and propofol infusions, with intermittent agitation associated with severe hypertension. He received a total of 10 units of packed red blood cells, with an additional 1 unit of packed red blood cell transfusion planned this morning, 3 units of fresh frozen plasma, 6 pack of platelets and 1 unit of cryoprecipitate. He appears comfortable, unresponsive and sedated. Attempts to contact his were successful per nursing but she is unable to come to the hospital for transportation reasons at this time. Team rounds were conducted with Dr. Fontenot of [facility], as well as case management, nursing and pharmacy services. 02/07: The patient remains intubated, sedated on mechanical ventilation. Sedation was lightened and he was able to nod yes to command and squeeze independent distributor when asked if he would like the breathing tube removed. No further bleeding reported or evidenced on orogastric tube secretions or stooling. Transient hypotension possibly due to arterial line technical issues. He was placed on Levophed infusion when readings were in the 70s, but these are questionable. Pending extubation when clearly hemodynamically stable readings noted off pressors. Unfortunately the patient experienced persistent hypotension requiring additional fluid support and temporary Levophed infusion which was successfully weaned off. EKG remained unremarkable showing no acute ischemic changes though troponin was elevated at 1.79 at 1:00 p.m., 9.64 at 3:20 p.m., and 15.5 at 5:20 p.m. His hematocrit drifted down to 25.8% with no evidence of active bleeding and an additional 1 unit of PRBC is ordered. Given his cardiac decline and high-risk of cardiac complications and , arrangements were made for transfer to a tertiary level facility for ongoing cardiac care and support. Case was reviewed in detail with Dr. Morrow of [facility] and she has graciously agreed to accept the patient, and [facility] has bed space available at the time of this dictation. The patient's was updated by phone earlier about the need for imminent transfer, and a message is left subsequently about further plans and to contact the hospital back for updates. 2 hours of critical care time spent today. Status at Discharge Overall status at discharge: patient is not back to baseline Exam Vital Signs (past 8 hours): - 02/07/25 10:51 02/07/25 11:00 02/07/25 11:13 Pulse Rate 84 84 Respiratory Rate 10 L 23 Blood Pressure Pulse Oximetry 96 97 95 Oxygen Delivery Method 02/07/25 11:13 02/07/25 11:18 02/07/25 11:18 Pulse Rate 82 Respiratory Rate 21 Blood Pressure 83/56 L 77/57 L Pulse Oximetry 96 Oxygen Delivery Method 02/07/25 11:21 02/07/25 11:21 02/07/25 11:25 Pulse Rate 82 75 Respiratory Rate 22 20 Blood Pressure 79/56 L Pulse Oximetry 97 98 Oxygen Delivery Method 02/07/25 11:25 02/07/25 11:27 02/07/25 11:27 Pulse Rate 64 Respiratory Rate 13 Blood Pressure 80/53 L 84/54 L Pulse Oximetry 98 Oxygen Delivery Method 02/07/25 11:30 02/07/25 11:31 02/07/25 11:31 Pulse Rate 82 77 Respiratory Rate 26 H 22 Blood Pressure 120/62 Pulse Oximetry 95 97 Oxygen Delivery Method 02/07/25 11:41 02/07/25 11:41 02/07/25 11:42 Pulse Rate 89 97 H Respiratory Rate 13 15 Blood Pressure 136/78 Pulse Oximetry 96 96 Oxygen Delivery Method 02/07/25 11:42 02/07/25 11:44 02/07/25 11:44 Pulse Rate 97 H Respiratory Rate 20 Blood Pressure 140/82 148/84 H Pulse Oximetry 97 Oxygen Delivery Method 02/07/25 11:46 02/07/25 11:46 02/07/25 11:48 Pulse Rate 101 H Respiratory Rate 25 H Blood Pressure 146/73 H 133/79 Pulse Oximetry 97 Oxygen Delivery Method 02/07/25 11:48 02/07/25 11:50 02/07/25 11:50 Pulse Rate 101 H 98 H Respiratory Rate 27 H 26 H Blood Pressure 149/79 H Pulse Oximetry 98 98 Oxygen Delivery Method 02/07/25 11:53 02/07/25 11:53 02/07/25 11:56 Pulse Rate 95 H Respiratory Rate 24 Blood Pressure 135/68 118/66 Pulse Oximetry 98 Oxygen Delivery Method 02/07/25 11:56 02/07/25 11:59 02/07/25 11:59 Pulse Rate 93 H 65 Respiratory Rate 22 18 Blood Pressure 102/69 Pulse Oximetry 96 99 Oxygen Delivery Method 02/07/25 12:00 02/07/25 12:00 02/07/25 12:07 Pulse Rate 78 92 H Respiratory Rate 21 19 Blood Pressure 91/67 Pulse Oximetry 100 95 Oxygen Delivery Method 02/07/25 12:07 02/07/25 12:18 02/07/25 12:18 Pulse Rate 95 H Respiratory Rate 26 H Blood Pressure 116/72 116/73 Pulse Oximetry 94 Oxygen Delivery Method 02/07/25 12:22 02/07/25 12:22 02/07/25 12:29 Pulse Rate 96 H 95 H Respiratory Rate 15 22 Blood Pressure 112/69 Pulse Oximetry 95 95 Oxygen Delivery Method 02/07/25 12:29 02/07/25 12:30 02/07/25 12:34 Pulse Rate 95 H 91 H Respiratory Rate 25 H 18 Blood Pressure 119/63 Pulse Oximetry 95 96 Oxygen Delivery Method 02/07/25 12:34 02/07/25 12:38 02/07/25 12:38 Pulse Rate 92 H Respiratory Rate 15 Blood Pressure 109/62 95/54 L Pulse Oximetry 95 Oxygen Delivery Method 02/07/25 12:54 02/07/25 12:54 02/07/25 13:00 Pulse Rate 81 74 Respiratory Rate 27 H 14 Blood Pressure 102/55 L Pulse Oximetry 94 93 Oxygen Delivery Method 02/07/25 13:00 02/07/25 13:17 02/07/25 13:17 Pulse Rate 77 Respiratory Rate 14 Blood Pressure 78/50 L Pulse Oximetry 91 Oxygen Delivery Method Mechanical Ventilation 02/07/25 13:30 02/07/25 13:40 02/07/25 13:40 Pulse Rate 70 81 Respiratory Rate 14 14 Blood Pressure 103/64 Pulse Oximetry 98 97 Oxygen Delivery Method 02/07/25 14:00 02/07/25 14:00 02/07/25 14:15 Pulse Rate 97 H Respiratory Rate 34 H Blood Pressure 134/82 118/72 Pulse Oximetry 99 Oxygen Delivery Method 02/07/25 14:15 02/07/25 14:30 02/07/25 14:30 Pulse Rate 93 H 93 H Respiratory Rate 14 14 Blood Pressure 112/71 Pulse Oximetry 99 99 Oxygen Delivery Method 02/07/25 14:45 02/07/25 14:45 02/07/25 15:00 Pulse Rate 94 H Respiratory Rate 14 Blood Pressure 117/66 107/61 Pulse Oximetry 91 Oxygen Delivery Method 02/07/25 15:00 02/07/25 15:15 02/07/25 15:15 Pulse Rate 92 H 96 H Respiratory Rate 14 23 Blood Pressure 120/69 Pulse Oximetry 92 96 Oxygen Delivery Method 02/07/25 15:30 02/07/25 15:30 02/07/25 15:45 Pulse Rate 87 83 Respiratory Rate 16 14 Blood Pressure 94/59 L Pulse Oximetry 93 93 Oxygen Delivery Method 02/07/25 15:45 02/07/25 16:00 02/07/25 16:00 Pulse Rate 79 Respiratory Rate 14 Blood Pressure 93/60 80/50 L Pulse Oximetry 91 Oxygen Delivery Method 02/07/25 16:13 02/07/25 16:13 02/07/25 16:30 Pulse Rate 79 78 Respiratory Rate 14 14 Blood Pressure 93/58 L Pulse Oximetry 92 89 L Oxygen Delivery Method 02/07/25 16:30 02/07/25 16:40 02/07/25 16:40 Pulse Rate 80 Respiratory Rate 14 Blood Pressure 78/52 L 109/65 Pulse Oximetry 96 Oxygen Delivery Method 02/07/25 16:45 02/07/25 16:45 02/07/25 17:00 Pulse Rate 81 Respiratory Rate 14 Blood Pressure 104/62 Pulse Oximetry 96 Oxygen Delivery Method Mechanical Ventilation Fraction of Inspired Oxygen 24 Oxygen Delivery Method Mechanical Ventilation Narrative Exam Narrative: GENERAL: The patient is endotracheally intubated with orogastric tube in place, sedated on mechanical ventilation, on midazolam and phenylephrine infusions. He has a right IJ triple-lumen catheter in place, left radial arterial line, right hand peripheral IV, and [place] catheter in place. EYES: Pupils equal round and reactive. No injection or drainage. ENT: Mucous membranes pink and moist. NECK: Trachea midline. CARDIOVASCULAR: Regular rate and rhythm without murmurs, gallops, or rubs. RESPIRATORY: Decreased breath sounds bilateral bases, clear anteriorly. GASTROINTESTINAL: Abdomen soft, nondistended. EXTREMITIES: No clubbing, cyanosis, or edema. NEUROLOGIC: Sedated, intubate though responds appropriately to commands with nodding and hand vice president safety squeezing, globally weak, no focal deficits evident. DERMATOLOGIC: No rashes or skin lesions. Objective Labs 02/07/25 13:00 02/07/25 13:00 Labs: Laboratory Results - last 24 hr 02/04/25 02/04/25 02/07/25 18:19 18:52 00:10 WBC RBC Hgb Hct MCV MCH MCHC RDW Plt Count Neut % (Auto) Lymph % (Auto) [place] % (Auto) Eos % (Auto) Baso % (Auto) Neut # (Auto) Lymph # (Auto) [place] # (Auto) Eos # (Auto) Baso # (Auto) Sodium Potassium Chloride Carbon Dioxide BUN Creatinine Estimated GFR BUN/Creatinine Ratio Glucose POC Whole Bld Glucose 133 H Calcium Magnesium Total Bilirubin AST ALT Alkaline Phosphatase Troponin I Total Protein Albumin Globulin Albumin/Globulin Ratio Blood Type Cancelled Rho(D) Type Cancelled Antibody Screen Crossmatch See Detail 02/07/25 02/07/25 02/07/25 06:08 06:20 12:16 WBC 17.6 H RBC 3.11 L Hgb 9.6 L Hct 28.1 L MCV 90.3 MCH 30.9 MCHC 34.3 RDW 14.3 Plt Count 170 Neut % (Auto) 82.2 H Lymph % (Auto) 9.7 L [place] % (Auto) 6.4 Eos % (Auto) 1.4 L Baso % (Auto) 0.3 Neut # (Auto) 68941 H Lymph # (Auto) 1700 [place] # (Auto) 1100 H Eos # (Auto) 200 Baso # (Auto) 100 Sodium 135 L Potassium 3.5 D Chloride 106 Carbon Dioxide 26 BUN 24 H Creatinine 1.14 Estimated GFR > 60 BUN/Creatinine Ratio 21.1 Glucose 156 H POC Whole Bld Glucose 158 H 124 H Calcium 7.5 L Magnesium 1.7 Total Bilirubin 0.7 AST 24 ALT 18 Alkaline Phosphatase 62 Troponin I Total Protein 5.0 L Albumin 2.6 L Globulin 2.4 Albumin/Globulin Ratio 1.1 Blood Type Rho(D) Type Antibody Screen Crossmatch 02/07/25 02/07/25 02/07/25 13:00 15:20 16:20 WBC 15.1 H RBC 2.84 L Hgb 8.8 L Hct 25.8 L MCV 91.1 MCH 31.1 MCHC 34.1 RDW 14.5 Plt Count 156 Neut % (Auto) 90.3 H Lymph % (Auto) 3.9 L [place] % (Auto) 5.1 Eos % (Auto) 0.5 L Baso % (Auto) 0.2 Neut # (Auto) 74833 H Lymph # (Auto) 600 L [place] # (Auto) 800 Eos # (Auto) 100 Baso # (Auto) 0 Sodium 136 L Potassium 4.0 Chloride 107 Carbon Dioxide 25 BUN 22 H Creatinine 1.13 Estimated GFR > 60 BUN/Creatinine Ratio 19.5 Glucose 132 H POC Whole Bld Glucose Calcium 7.3 L Magnesium Total Bilirubin 1.0 AST 44 ALT 18 Alkaline Phosphatase 67 Troponin I 1.790 H* 9.640 H* Total Protein 4.9 L Albumin 2.5 L Globulin 2.4 Albumin/Globulin Ratio 1.0 Blood Type O Positive Rho(D) Type Antibody Screen Negative Crossmatch See Detail 02/07/25 02/07/25 17:20 17:53 WBC RBC Hgb Hct MCV MCH MCHC RDW Plt Count Neut % (Auto) Lymph % (Auto) [place] % (Auto) Eos % (Auto) Baso % (Auto) Neut # (Auto) Lymph # (Auto) [place] # (Auto) Eos # (Auto) Baso # (Auto) Sodium Potassium Chloride Carbon Dioxide BUN Creatinine Estimated GFR BUN/Creatinine Ratio Glucose POC Whole Bld Glucose 144 H Calcium Magnesium Total Bilirubin AST ALT Alkaline Phosphatase Troponin I 15.500 H* Total Protein Albumin Globulin Albumin/Globulin Ratio Blood Type Rho(D) Type Antibody Screen Crossmatch [facility] Social History household members: significant other Smoking Status: Current every day smoker alcohol intake: current Discharge Plan Discharge Plan Patient Disposition: [facility] Quality VTE Deep Vein Thrombosis/Pulmonary Embolism Present on Admission: No MIPS - Admit I confirm the patient?s Advance Care Plan is present, Code status is documented, Surrogate decision maker is in patient?s record [If Yes, STOP here]: Yes MIPS - Meds 'Current medications' to include all prescriptions, [id number] products, herbals, cannabis/cannabidiol products, and vitamin/mineral/dietary (nutritional) supplements. I have utilized all available resources to obtain, update, or review the patient?s current medications. [If Yes, STOP here]: Yes MIPS - DC The patient has a history of heart transplant or Left Ventricular Assist Device (LVAD). If yes, STOP here.: No The patient has current or prior documentation of left ventricular ejection fraction (LVEF) less than or equal to 40%, or moderate or severely depressed left ventricular systolic function.: No A. The patient was prescribed or already taking an Angiotensin-Converting Enzyme (NATALIA) Inhibitor, or Angiotensin Receptor Julee (ARB).: No B. The patient was prescribed or already taking a beta-julee. [If Yes to Both A & B, STOP here]: No Patient not prescribed/taking NATALIA or ARB, no reason given.: No Patient not prescribed/taking beta-julee, no reason given.: No PROFEE Charge Codes Discharge inpatient/observation: 83350 (2 hrs critical care time)
--- NOTE | 2025-02-07 19:40 | PC.NURSE ---
Family member/ emergency contact Whitney Cee contacted at [phone]. Received verbal consent to transfer patient to higher level of care, [facility]. Provided family member with information regarding transfer, address, and phone number to contact receiving hospital. Primary RN and provider informed.
[2025-02-07 20:05] LABS: Troponin I 23.000 ng/mL (0.01-0.034)
[2025-02-07] MEDS: dexmedeTOMIDine in 0.9 % NaCL 400 MCG/100 ML PLAST..BAG 12.927 MCG IV (20:23)
[2025-02-07 20:43] LABS: Base Excess VBG -0.9 mmol/L (0-4); HCO3 VBG 26 mmol/L (24-28); Oxygen Saturation VBG 68 % (70-75); PCO2 VBG 49.1 mmHg (45-50); PO2 VBG 39 mmHg (35-45); Total CO2 VBG 25 mmol/L (24-29); pH VBG 7.32 (7.33-7.43)
--- NOTE | 2025-02-07 21:24 | PC.NURSE ---
[id number]-pt picked up via stretcher by Debbie ANG to transfer pt to [facility] [id number], report called to irving MORAN., SO Pia aware and consented to transfer Pt stable with ETT in place, IV drips levophed/versed/precedex continued, fentynal gtt restarted for transport pt aggitated pulling at lines, VSS, afebrile, lungs clear, O2 sats >92%, abd soft with BS, NGT L nare patent for bile drainage, r/c draining clear yellow urine, bilat soft wrist restraints maintained for pt safety for transfer, I unit PRBC transfused prior to transport
[2025-02-08 02:51] LABS: Acinetobacter calcoa-baumannii Not Detected (Not Detect); Bacteroides fragilis Not Detected (Not Detect); Candida auris Not Detected (Not Detect); Candida glabrata Not Detected (Not Detect); Cryptococcus neoformans/gatti Not Detected (Not Detect); Enterobacterales Not Detected (Not Detect); Enterococcus faecalis Not Detected (Not Detect); Enterococcus faecium Not Detected (Not Detect); Klebsiella aerogenes Not Detected (Not Detect); Proteus species Not Detected (Not Detect); Serratia marcescens Not Detected (Not Detect); Staphylococcus epidermidis Detected (Not Detect); Staphylococcus lugdunensis Not Detected (Not Detect); Staphylococcus species Detected (Not Detect); Stenotrophomonas maltophilia Not Detected (Not Detect); Streptococcus agalactiae (Gr B Not Detected (Not Detect); Streptococcus pneumonia Not Detected (Not Detect); Streptococcus pyogenes (Gr A) Not Detected (Not Detect); Streptococcus species Not Detected (Not Detect); mecA/C Resistance Detected (Not Detect)
== END 2025-02-07 21:10 | disposition short-term general hospital (02) | DRG 377 ==
LOC: ED 18:18 → AC 19:52 → ICU 22:00
PROVIDERS: Emergency Medicine; Internal Medicine; Internal Medicine Critical Care Medicine; Surgery; Admitting Provider Internal Medicine; Emergency Provider Family Medicine; Referring Provider Family Medicine; Visit Provider Internal Medicine
PROC: 0DJ08ZZ Inspection of Upper Intestinal Tract, Via Natural or Artificial Opening Endoscopic (ICD-10-PCS; principal; 2025-02-05 15:45)
DX: K26.4 Chronic or unspecified duodenal ulcer with hemorrhage (principal); G93.41 Metabolic encephalopathy; R57.8 Other shock; J69.0 Pneumonitis due to inhalation of food and vomit; J96.01 Acute respiratory failure with hypoxia; I21.4 Non-ST elevation (NSTEMI) myocardial infarction; D62 Acute posthemorrhagic anemia; F10.139 Alcohol abuse with withdrawal, unspecified; K29.71 Gastritis, unspecified, with bleeding; F17.200 Nicotine dependence, unspecified, uncomplicated; F19.11 Other psychoactive substance abuse, in remission; K44.9 Diaphragmatic hernia without obstruction or gangrene; I73.9 Peripheral vascular disease, unspecified; I25.10 Atherosclerotic heart disease of native coronary artery without angina pectoris; I10 Essential (primary) hypertension; I69.312 Visuospatial deficit and spatial neglect following cerebral infarction
CPT/HCPCS: 36415; 36430; 36600; 71045; 74174; 80053; 81003; 82272; 82550; 82805; 82962; 83690; 83735; 83880; 84484; 85014; 85018; 85025; 85049; 85384; 85610; 85730; 86850; 86900; 86901; 86927; 87040; 87077; 87154; 87637; 87797; 93005; 94002; 94003; 94799; 96361; 96374; 99285; P9016; J0165; J1938; J2250; J2270; J2470; J2543; J2704; J3010; J3475; P9035; Q9967